=== PATIENT | female | born 1960 | race Two or more races ===

== ENCOUNTER 2016-12-31 22:34 | Emergency (ER) | payer OTHER ==
[2016-12-31 23:07] VITALS: BMI 32.5
[2016-12-31] MEDS ORDERED: ASPIRIN 81 MG CHEWABLE TABLETS PO ONE (23:13)
--- NOTE | 2016-12-31 23:16 | PDOC ---
History of Present Illness - General Chief Complaint: Pain Stated Complaint: ABD PAIN Time Seen by Provider: 12/31/16 23:08 History Source: Patient Exam Limitations: Language Barrier - History of Present Illness Initial Comments: 12/31/16 23:16 Patient is a 56F with PMH of HTN, HLD, and borderlne diabetes here today complaining of a syncopal event. She was straining to defecate, then started feeling lightheaded, sweaty, chest tightness and short of breath. The symptoms resolved after about one minute. She denies current shortness of breath but still endorses current chest tightness. She endorses orthopnea. She denies fevers or chills. Past History - Past Medical History Allergies/Adverse Reactions: Allergies Allergy/AdvReac Type Severity Reaction Status Date / Time No Known Drug Allergies Allergy Verified 12/31/16 23:07 PETS Allergy Intermediate Uncoded 12/31/16 23:07 SEASONAL Allergy Intermediate Uncoded 12/31/16 23:07 Home Medications: Ambulatory Orders Amlodipine Besylate [Norvasc -] 10 mg PO DAILY 06/11/12 Meclizine HCl [Antivert -] 25 mg PO TID 06/11/12 Albuterol Sulfate Inhaler - [Ventolin HFA Inhaler -] 1 inh PO PRN PRN 01/09/14 Aspirin [Aspirin EC] 1 tab PO DAILY 01/09/14 Ferrous Sulfate [Feosol] 1 tab PO DAILY 01/09/14 Fluticasone/Salmeterol [Advair Hfa 115-21 Mcg Inhaler] 1 inh PO AM 01/09/14 Pantoprazole Sodium [Protonix] 1 tab PO DAILY 01/09/14 Sennosides/Docusate Sodium [Dok Plus Tablet] 1 tab PO DAILY 01/09/14 Simvastatin [Zocor -] 1 tab PO DAILY 01/09/14 Guar Gum [Benefiber] 1 each PO BID #0 packet 01/10/14 Polyethylene Glycol 3350 [Miralax 255 gm Btl -] 17 gm PO DAILY #1 bottle Oxycodone HCl/Acetaminophen [Percocet 5-325 mg Tablet -] 1 - 2 tab PO Q4H PRN # 7 tablet MDD 4 01/23/16 Anemia: No Asthma: Yes Cancer: No Cardiac Disorders: No CVA: No COPD: No Dementia: No HTN: Yes Hypercholesterolemia: Yes Seizures: No Thyroid Disease: Yes (HYPO) - Surgical History Abdominal Surgery: Yes (ABDOMINAL HERNIA REPAIR) Cardiac Surgery: No Lung Surgery: No Neurologic Surgery: No - Psycho/Social/Smoking Cessation Hx Anxiety: No Suicidal Ideation: No Smoking Status: No Smoking History: Never smoked Have you smoked in the past 12 months: No Number of Cigarettes Smoked Daily: 0 Information on smoking cessation initiated: No Hx Alcohol Use: No Drug/Substance Use Hx: No Substance Use Type: None Review of Systems - Review of Systems Constitutional: No: Chills, Fever Respiratory: Yes: Shortness of Breath Cardiac (ROS): Yes: Lightheadedness, Chest Tightness. No: Chest Pain, Palpitations ABD/GI: Yes: Abd. Pain w/ defecation : No: Burning, Dysuria Musculoskeletal: Yes: Joint Pain (Left knee) Neurological: Yes: Headache *Physical Exam - Vital Signs Last Vital Signs Temp Pulse Resp BP Pulse Ox 98.8 F 79 18 116/84 98 12/31/16 23:05 12/31/16 23:05 12/31/16 23:05 12/31/16 23:05 12/31/16 23:05 - Physical Exam Comments: 12/31/16 23:41 Gen: No acute distress, well nourished CV: Regular rate and rhythm, no murmur/rubs/gallops Lungs: Clear to auscultation bilaterally Abd: Soft, nontender, normal bowel sounds Legs: Bilateral pitting edema to knees. Pain to palpation at and above the left knee. No erythema or redness Ext: 2+ pulses in all four extremities, warm ED Treatment Course - LABORATORY CBC & Chemistry Diagram: 12/31/16 23:48 12/31/16 23:48 Medical Decision Making - Medical Decision Making 12/31/16 23:46 Patient is a 56 woman with a history of left knee replacement complicated by chronic pain here today complaining of near syncope. Presentation is most consistent with vasovagal syncope. Will rule out DVT, ACS and other cardiac etiologies of synocpe. I ordered CBC, CMP, CXR, ECG, Trop, and BNP. Will signout to Dr Rajesh Chavira. 01/01/17 00:04 Condition unchanged. Workup pending. Signed out to Dr Rajesh Chavira. *DC/Admit/Observation/Transfer Diagnosis at time of Disposition: Syncope Qualifiers: Syncope type: vasovagal syncope Qualified Code(s): R55 - Syncope and collapse - Discharge Dispostion Condition at time of disposition: Fair - Attestations Physician Attestion: 01/01/17 00:07 I, Dr. Yahir Murphy, attest that this document has been prepared under my direction and personally reviewed by me in its entirety. I further attest, that it accurately reflects all work, treatment, procedures and medical decision -making performed by me.
[2016-12-31] MEDS ORDERED: ASPIRIN 81 MG CHEWABLE TABLETS ONE (23:25)
--- NOTE | 2016-12-31 23:47 | PDOC ---
Attending Attestation - Resident Resident Name: JeffreyYahir - ED Attending Attestation I have performed the following: I have examined & evaluated the patient, The case was reviewed & discussed with the resident, I agree w/resident's findings & plan, Exceptions are as noted - HPI HPI: 12/31/16 23:45 56-year-old female with left knee replacement about 9 months ago complicated by chronic knee pain maintained on opiates daily presents with near syncopal episode while straining to have a bowel movement. Developed lightheadedness with nausea and pallor, no injuries or loss of consciousness, brought in by EMS for evaluation. Symptoms have essentially resolved. - Physicial Exam PE: 12/31/16 23:46 Vital signs normal. Well-appearing. Cardiopulmonary exam is nonfocal, no audible murmurs Left knee incisional site is clean/dry/intact, there is trace pretibial pitting edema bilaterally. Neurovascularly intact distally - Medical Decision Making 12/31/16 23:46 Patient seen and evaluated with the resident. I agree with the overall evaluation, assessment, and management with the following summary of visit: 56-year-old female with presentation most consistent with vasovagal episode in the setting of constipation secondary to opiates and straining to have bowel movement. Low suspicion for primary cardiopulmonary process, vital signs are normal and not suggestive of ACS or PE. Check basic labs including troponin EKG, chest x-ray Left leg Doppler Monitor and dispo accordingly. If above is within normal limits, can be discharged outpatient follow-up with bowel regimen. 01/01/17 00:53 labs wnl, wbc 8, K 3.3, Cr nl, trop/bnp negative. UA with elevated WBC. Will send urine cx and treat empirically for UTI. Doppler performed but pending. Looks and feels at baseline, dispo pending. 01/01/17 01:48 labs wnl. mild hypoK repleted. doppler negative for dvt. UA with evidence of UTI. Ucx sent and treated empirically with macrobid. well appearing and at baseline in ED, seen ambulating with assistance as is her baseline. Family at bedside, agree with d/c plan on abx. Understand return criteria. Discharge Disposition - Diagnosis Syncope Qualifiers: Syncope type: vasovagal syncope Qualified Code(s): R55 - Syncope and collapse UTI (urinary tract infection) Qualifiers: Urinary tract infection type: acute cystitis Hematuria presence: without hematuria Qualified Code(s): N30.00 - Acute cystitis without hematuria - Discharge Dispostion Disposition: HOME Condition at time of disposition: Fair - Prescriptions Prescriptions: Nitrofurantoin Monohyd/M-Cryst [Macrobid -] 100 mg PO BID #14 capsule - Referrals Referrals: Cary Hanks MD [Primary Care Provider] - - Patient Instructions Printed Discharge Instructions: DI for Syncope in Adults (Fainting), DI for Urinary Tract Infection (UTI) Additional Instructions: Thank you for trusting us with your healthcare. You were diagnosed with vasovagal syncope, most likely caused by straining to use the restroom. You also have symptoms of a urinary tract infection. Based on our tests we were able to rule out serious causes for your syncope, however, if your symptoms worsen or you start to have fever or become confused, please return to the ED immediately. You should also follow up with your primary care physician to discuss our diagnosis and how this may effect his general management of your health. Print Language: [place] - Post Discharge Activity Heart Score/ECG Review #1 ECG reviewed & interpreted by me at: 01:30 General ECG Interpretation: Sinus Rhythm, Normal Rate (88), Normal Intervals ( qtc 486), No acute ischemic changes
[2016-12-31 23:54] LABS: BASOPHIL 0.7 % (0-2.0); EOSINOPHIL 2.5 % (0-4.5); MCH 24.6 pg (25.7-33.7); MCHC 32.8 g/dl (32.0-36.0); MEAN CELL VOLUME 75.1 fl (80-96); MEAN PLT VOLUME 8.6 fl (7.5-11.1); NEUTROPHILS 63.2 % (42.8-82.8); PLATELET COUNT 284 K/MM3 (134-434); RDW 15.2 % (11.6-15.6)
--- NOTE | 2017-01-01 00:15 | PDOC ---
*Physical Exam - Vital Signs Last Vital Signs Temp Pulse Resp BP Pulse Ox 98.8 F 79 18 116/84 98 12/31/16 23:05 12/31/16 23:05 12/31/16 23:05 12/31/16 23:05 12/31/16 23:05 Heart Score/ECG Review - History History: Slightly suspicious - Age Age: 45-65 - Risk Factors Risk Factors Heart Score: Yes Hx Hypertension, Yes Hx Diabetes - Troponin Troponin: </= normal limit ED Treatment Course - LABORATORY CBC & Chemistry Diagram: 12/31/16 23:48 12/31/16 23:48 - ADDITIONAL ORDERS Additional order review: 12/31/16 23:48 RBC 4.49 MCV 75.1 L MCHC 32.8 RDW 15.2 MPV 8.6 Neutrophils % 63.2 Lymphocytes % 27.4 Monocytes % 6.2 Eosinophils % 2.5 Basophils % 0.7 - Medications Given in the ED: ED Medications Discontinued Medications Generic Name Dose Route Start Last Admin Trade Name Freq PRN Reason Stop Dose Admin Aspirin 162 mg 12/31/16 23:13 12/31/16 23:27 Asa - PO 12/31/16 23:14 162 mg ONCE ONE Administration Medical Decision Making - Medical Decision Making 01/01/17 00:41 56 yo F with syncopy with BM. Complete cardiac w/o incl radiology and labs CBC wnl, mild hypokalemia (3.3), Nic(-)@<0,02 BNP(-)@37.1 01/01/17 02:15 CXR wnl doppler wnl *DC/Admit/Observation/Transfer Diagnosis at time of Disposition: Syncope Qualifiers: Syncope type: vasovagal syncope Qualified Code(s): R55 - Syncope and collapse UTI (urinary tract infection) Qualifiers: Urinary tract infection type: acute cystitis Hematuria presence: without hematuria Qualified Code(s): N30.00 - Acute cystitis without hematuria - Discharge Dispostion Disposition: HOME Condition at time of disposition: Fair - Referrals Referrals: Cary Hanks MD [Primary Care Provider] - - Patient Instructions Printed Discharge Instructions: DI for Urinary Tract Infection (UTI), DI for Syncope in Adults (Fainting) Additional Instructions: Thank you for trusting us with your healthcare. You were diagnosed with vasovagal syncope, most likely caused by straining to use the restroom. You also have symptoms of a urinary tract infection. Based on our tests we were able to rule out serious causes for your syncope, however, if your symptoms worsen or you start to have fever or become confused, please return to the ED immediately. You should also follow up with your primary care physician to discuss our diagnosis and how this may effect his general management of your health. - Post Discharge Activity - Attestations Physician Attestion: 01/01/17 02:30 I, Dr. Rajesh Chavira, attest that this document has been prepared under my direction and personally reviewed by me in its entirety. I further attest, that it accurately reflects all work, treatment, procedures and medical decision -making performed by me.
[2017-01-01 00:22] LABS: ALBUMIN 3.7 g/dl (3.4-5.0); ANION GAP 10 (8-16); BILIRUBIN,TOTAL 0.4 mg/dL (0.2-1.0); CALCIUM 8.8 mg/dL (8.5-10.1); CO2 28 mmol/L (21-32); CREATININE 0.7 mg/dL (0.55-1.02); GLUCOSE,RANDOM 136 mg/dL (74-106); SGOT/AST 32 U/L (15-37); SGPT/ALT 48 U/L (12-78); TOT PROT 7.1 g/dl (6.4-8.2)
[2017-01-01 00:25] LABS: ALK PHOS 87 U/L (45-117); TROPONIN I < 0.02 ng/ml (0.00-0.05)
[2017-01-01 00:36] LABS: URINE APPEARANCE CLEAR; URINE BILIRUBIN NEGATIVE (NEGATIVE); URINE COLOR STRAW; URINE GLUCOSE (UA) NEGATIVE (NEGATIVE); URINE KETONE NEGATIVE (NEGATIVE); URINE NITRITE NEGATIVE (NEGATIVE); URINE PROTEIN NEGATIVE (NEGATIVE); URINE UROBILINOGEN NEGATIVE E.U./dl (0.2-1.0)
[2017-01-01 00:40] LABS: URINE BLOOD 1+ (NEGATIVE); URINE LEUK ESTERASE TRACE (NEGATIVE)
[2017-01-01 00:42] LABS: URINE BACTERIA MODERATE /hpf (NONE SEEN); URINE RBC 2 /hpf (0-3); URINE WBC 25 /hpf (3-5)
[2017-01-01] MEDS ORDERED: POTASSIUM CHLORIDE TABS 20 MEQ TABLET.ER (FP) PO ONE ×2 (00:52→01:11)
[2017-01-01] MEDS ORDERED: NITROFURANTOIN MACROCRYSTAL 50 MG CAPSULE (FP) PO SCH (01:00)
[2017-01-01] MEDS ORDERED: NITROFURANTOIN MACROCRYSTAL 50 MG CAPSULE (FP) ONE (01:10)
[2017-01-01 02:52] VITALS: BP 134/72; PULSE 85; TEMP 98.4
--- NOTE | 2017-01-03 13:54 | EKG ---
Test Reason : Blood Pressure : / mmHG Vent. Rate : 088 BPM Atrial Rate : 088 BPM P-R Int : 162 ms QRS Dur : 096 ms QT Int : 402 ms P-R-T Axes : 059 003 006 degrees QTc Int : 486 ms NORMAL SINUS RHYTHM PROLONGED QT ABNORMAL ECG WHEN COMPARED WITH ECG OF 28-APR-2016 18:56, NO SIGNIFICANT CHANGE WAS FOUND Confirmed by JONATHAN JOHNSON MD ([id number]) on 01/03/2017 1:54:13 PM Referred By: Confirmed By:JONATHAN JOHNSON MD
== END 2017-01-01 03:03 | disposition home or self-care (01) ==
LOC: SUPCPDRO 22:34 → JER 22:34
DX: R55 Syncope and collapse (principal); I10 Essential (primary) hypertension; E78.5 Hyperlipidemia, unspecified; J45.909 Unspecified asthma, uncomplicated; E03.9 Hypothyroidism, unspecified
CPT/HCPCS: 36415; 71020-TC; 80053; 81003; 81015; 82550; 83880; 84484; 87086; 93005; 93010; 93971-TC; 99282-25

== ENCOUNTER 2017-07-16 23:14 | Emergency (ER) | payer OTHER ==
[2017-07-16 23:26] VITALS: TEMP 98; BMI 24.3
--- NOTE | 2017-07-16 23:38 | PDOC ---
History of Present Illness - General Chief Complaint: Chest Pain Stated Complaint: CHEST PAIN Time Seen by Provider: 07/16/17 23:22 - History of Present Illness Initial Comments: 07/16/17 23:46 56F with pmf of multiple knee replacements, asthma, htn and cholesterol presents with left sided chest pain and back pain sice getting into an argument with her tonight an hour ago. Patient also complains of headache. 07/16/17 23:55 Past History - Past Medical History Allergies/Adverse Reactions: Allergies Allergy/AdvReac Type Severity Reaction Status Date / Time No Known Drug Allergies Allergy Verified 07/16/17 23:24 PETS Allergy Intermediate Uncoded 07/16/17 23:24 SEASONAL Allergy Intermediate Uncoded 07/16/17 23:24 Home Medications: Ambulatory Orders Cetirizine HCl 10 mg PO DAILY 01/01/17 Cyclobenzaprine HCl [Flexeril 10 mg] 10 mg PO BID PRN 01/01/17 Fexofenadine HCl 180 mg PO DAILY 01/01/17 Oxycodone HCl/Acetaminophen [Endocet 7.5-325 mg Tablet] 1 each PO Q6H PRN Simvastatin 20 mg PO HS 01/01/17 Ferrous Sulfate 325 mg PO DAILY 07/17/17 Fluticasone Prop 0.05% Nasal [Flonase -] 1 spray NS DAILY 07/17/17 Losartan 50Mg/Hctz 12.5MG [Hyzaar -] 1 tab PO DAILY 07/17/17 Meclizine HCl 25 mg PO DAILY 07/17/17 Pantoprazole Sodium 40 mg PO DAILY 07/17/17 Anemia: No Asthma: Yes Cancer: No Cardiac Disorders: No CVA: No COPD: No Dementia: No Diabetes: Yes HTN: Yes Hypercholesterolemia: Yes Seizures: No Thyroid Disease: Yes (HYPO) - Surgical History Abdominal Surgery: Yes (ABDOMINAL HERNIA REPAIR) Cardiac Surgery: No Lung Surgery: No Neurologic Surgery: No - Suicide/Smoking/Psychosocial Hx Smoking Status: No Smoking History: Never smoked Have you smoked in the past 12 months: No Number of Cigarettes Smoked Daily: 0 Information on smoking cessation initiated: No Hx Alcohol Use: No Drug/Substance Use Hx: No Substance Use Type: None Cardiac Specific PMH - Complaint Specific PMHX Pacemaker: No Review of Systems - Review of Systems Able to Perform ROS?: Yes Is the patient limited Panamanian proficient: No Constitutional: No: Symptoms Reported HEENTM: No: Symptoms Reported Respiratory: No: Symptoms reported Cardiac (ROS): Yes: See HPI ABD/GI: No: Symptoms Reported : No: Symptoms Reported Musculoskeletal: No: Symptoms Reported Integumentary: No: Symptoms Reported Neurological: Yes: Headache All Other Systems: Reviewed and Negative *Physical Exam - Vital Signs Last Vital Signs Temp Pulse Resp BP Pulse Ox 98.0 F 75 18 150/77 96 07/16/17 23:24 07/17/17 02:19 07/17/17 02:19 07/17/17 02:19 07/17/17 00:10 - Physical Exam General Appearance: Yes: Nourished, Appropriately Dressed. No: Apparent Distress HEENT: positive: EOMI, MIKE, Normal ENT Inspection Neck: negative: Tender Respiratory/Chest: positive: Chest Tender, Lungs Clear, Normal Breath Sounds Cardiovascular: positive: Regular Rhythm, Regular Rate, S1, S2 Gastrointestinal/Abdominal: positive: Normal Bowel Sounds, Flat, Soft. negative : Tender Neurologic: positive: Fully Oriented, Alert, Normal Mood/Affect ED Treatment Course - LABORATORY CBC & Chemistry Diagram: 07/17/17 00:18 07/17/17 00:18 - ADDITIONAL ORDERS Additional order review: Laboratory Results 07/17/17 07/17/17 04:28 00:18 Sodium 135 L Potassium 3.3 L Chloride 100 Carbon Dioxide 25 Anion Gap 10 BUN 11 Creatinine 0.7 Creat Clearance w eGFR > 60 Random Glucose 83 Calcium 8.5 Total Bilirubin 0.4 AST 21 ALT 31 Alkaline Phosphatase 86 Creatine Kinase 113 124 Troponin I < 0.02 < 0.02 Total Protein 7.7 Albumin 3.8 07/17/17 00:18 RBC 4.39 MCV 77.2 L MCHC 32.9 RDW 15.7 H MPV 9.0 Neutrophils % 36.7 L D Lymphocytes % 52.3 H D Monocytes % 6.7 Eosinophils % 3.5 Basophils % 0.8 - RADIOLOGY Radiology Studies Ordered: Category Date Time Status CHEST PA & LAT [RAD] Stat Radiology 07/17/17 01:50 Taken - Medications Given in the ED: ED Medications Discontinued Medications Generic Name Dose Route Start Last Admin Trade Name Freq PRN Reason Stop Dose Admin Acetaminophen 1,000 mg 07/17/17 02:30 07/17/17 02:40 Ofirmev Injection - IVPB 07/17/17 02:31 1,000 mg ONCE ONE Administration Potassium Chloride 40 meq 07/17/17 01:41 07/17/17 02:10 K-Dur - PO 07/17/17 01:42 40 meq ONCE ONE Administration Medical Decision Making - Medical Decision Making 07/17/17 01:53 Basic labs WNL negative Trops. EKG: Normal sinus rhythm. Left ventricular hypertrophy. non-specific st abnormality *DC/Admit/Observation/Transfer Diagnosis at time of Disposition: Chest pain, atypical - Discharge Dispostion Disposition: HOME Admit: No - Referrals Referrals: Grisel Rivera MD [Primary Care Provider] - - Patient Instructions Printed Discharge Instructions: DI for Atypical Chest Pain Additional Instructions: Follow up with your primary care physician within 3-4 days. Come back to the ED for any new, worsening or concerning symptoms. - Post Discharge Activity
--- NOTE | 2017-07-17 00:20 | PDOC ---
Attending Attestation - Resident Resident Name: Gabe Moran - ED Attending Attestation I have performed the following: I have examined & evaluated the patient, The case was reviewed & discussed with the resident, I agree w/resident's findings & plan - HPI HPI: 07/17/17 00:19 Pt comes with a crampy pain in her chest. Pain started 1 hr ago after getting into an argument with her . - Physicial Exam PE: 07/17/17 05:34 AGREE WITH RESIDENT EXAM - Medical Decision Making 07/17/17 05:35 HOME WITH PMD FOLLOW UP. 07/17/17 05:35 LABS NORMAL. 2ND CARDIAC ENZYME NORMAL
[2017-07-17 00:32] LABS: BASO % 0.8 % (0-2.0); HEMOGLOBIN 11.1 GM/dL (10.7-15.3); MONO % 6.7 % (3.8-10.2); WHITE BLOOD COUNT 6.4 K/mm3 (4.0-10.0)
[2017-07-17 00:35] LABS: EOS % 3.5 % (0-4.5); HEMATOCRIT 33.8 % (32.4-45.2); LYMPH % 52.3 % (8-40); MCH 25.4 pg (25.7-33.7); MCHC 32.9 g/dl (32.0-36.0); MEAN CELL VOLUME 77.2 fl (80-96); NEUT % 36.7 % (42.8-82.8); PLATELET COUNT 348 K/MM3 (134-434); RBC 4.39 M/mm3 (3.60-5.2); RDW 15.7 % (11.6-15.6)
[2017-07-17 00:59] LABS: ALBUMIN 3.8 g/dl (3.4-5.0); ANION GAP 10 (8-16); BILIRUBIN,TOTAL 0.4 mg/dL (0.2-1.0); BLOOD UREA NITROGEN 11 mg/dL (7-18); CALCIUM 8.5 mg/dL (8.5-10.1); CHLORIDE 100 mmol/L (98-107); CO2 25 mmol/L (21-32); CREATININE 0.7 mg/dL (0.55-1.02); GLUCOSE,RANDOM 83 mg/dL (74-106); POTASSIUM 3.3 mmol/L (3.5-5.1); SGOT/AST 21 U/L (15-37); SGPT/ALT 31 U/L (12-78); SODIUM 135 mmol/L (136-145); TOT PROT 7.7 g/dl (6.4-8.2)
[2017-07-17 01:02] LABS: ALK PHOS 86 U/L (45-117)
[2017-07-17] MEDS ORDERED: POTASSIUM CHLORIDE TABS 20 MEQ TABLET.ER (FP) PO ONE ×2 (01:41→02:10)
[2017-07-17 02:20] VITALS: BP 150/77; PULSE 75
[2017-07-17] MEDS ORDERED: ACETAMINOPHEN INJECTION 100 ML IVPB ONE (02:30)
[2017-07-17] MEDS ORDERED: ACETAMINOPHEN 1000 MG/100 ML VIAL (NON FORMULARY) IVPB ONE (02:30)
--- NOTE | 2017-07-17 16:05 | EKG ---
Test Reason : Blood Pressure : / mmHG Vent. Rate : 076 BPM Atrial Rate : 076 BPM P-R Int : 158 ms QRS Dur : 090 ms QT Int : 408 ms P-R-T Axes : 049 -03 -09 degrees QTc Int : 459 ms NORMAL SINUS RHYTHM VOLTAGE CRITERIA FOR LEFT VENTRICULAR HYPERTROPHY NONSPECIFIC ST ABNORMALITY ABNORMAL ECG WHEN COMPARED WITH ECG OF 01-JAN-2017 01:30, NO SIGNIFICANT CHANGE WAS FOUND Confirmed by Modesto Dolan ([id number]) on 07/17/2017 4:05:26 PM Referred By: Confirmed By:[place] Dolan
== END 2017-07-17 05:47 | disposition home or self-care (01) ==
LOC: JER 23:14
PROC: 3E033NZ Introduction of Analgesics, Hypnotics, Sedatives into Peripheral Vein, Percutaneous Approach (ICD-10-PCS; principal; 2017-07-16)
DX: R07.89 Other chest pain (principal); I10 Essential (primary) hypertension; E78.00 Pure hypercholesterolemia, unspecified; E11.9 Type 2 diabetes mellitus without complications; E03.9 Hypothyroidism, unspecified; J45.909 Unspecified asthma, uncomplicated
CPT/HCPCS: 36415; 71046-TC; 80053; 82550; 84484; 85025; 93005; 93010; 96374; 99283-25

== ENCOUNTER 2017-11-02 15:05 | Observation (INO) | payer OTHER ==
--- NOTE | 2017-11-02 16:01 | PDOC ---
History of Present Illness - General History Source: Patient Exam Limitations: No Limitations - History of Present Illness Initial Comments: 11/02/17 16:42 The patient is a 57 year old female with past medical history of chronic arthritis, hypertension, and diabetes s/p left knee replacement 3 months ago presents to the ED with multiple complaints. She reports left sided chest pain that began 2 months ago that radiates to her left shoulder and down her left arm. She reports putting her arm in a sling today without receiving any relief. It is not associated with any palpitations, lightheadedness, shortness of breath , numbness or tingling down the extremity, or any lower extremity swelling. She also reports that she developed a fever over the past day but denies any chills or cough. She reports associated headaches which she qualifies is the same as her chronic headaches. She denies any nausea, vomiting, diarrhea, or urinary complaints. The patient adds that she recently traveled to [facility] 2 months ago. <Julee Hinkle - Last Filed: 11/02/17 19:56> <Bambi Conde - Last Filed: 11/02/17 23:34> - General Chief Complaint: Chest Pain Stated Complaint: CHEST PAIN/ARM PAIN, ARTHRITIS Time Seen by Provider: 11/02/17 15:52 Past History <Julee Hinkle - Last Filed: 11/02/17 19:56> - Past Medical History Anemia: No Asthma: Yes Cancer: No Cardiac Disorders: No CVA: No COPD: No Dementia: No Diabetes: Yes HTN: Yes Hypercholesterolemia: Yes Seizures: No Thyroid Disease: Yes (HYPO) - Surgical History Abdominal Surgery: Yes (ABDOMINAL HERNIA REPAIR) Cardiac Surgery: No Lung Surgery: No Neurologic Surgery: No - Immunization History Immunization Up to Date: Yes - Suicide/Smoking/Psychosocial Hx Smoking Status: No Smoking History: Never smoked Have you smoked in the past 12 months: No Number of Cigarettes Smoked Daily: 0 Information on smoking cessation initiated: No Hx Alcohol Use: No Drug/Substance Use Hx: No Substance Use Type: None <Bambi Conde - Last Filed: 11/02/17 23:34> - Past Medical History Allergies/Adverse Reactions: Allergies Allergy/AdvReac Type Severity Reaction Status Date / Time No Known Drug Allergies Allergy Verified 11/02/17 15:32 PETS Allergy Intermediate Uncoded 11/02/17 15:32 SEASONAL Allergy Intermediate Uncoded 11/02/17 15:32 Home Medications: Ambulatory Orders Cetirizine HCl 10 mg PO DAILY 01/01/17 Cyclobenzaprine HCl [Flexeril 10 mg] 10 mg PO BID PRN 01/01/17 Fexofenadine HCl 180 mg PO DAILY 01/01/17 Oxycodone HCl/Acetaminophen [Endocet 7.5-325 mg Tablet] 1 each PO Q6H PRN Simvastatin 20 mg PO HS 01/01/17 Fluticasone Prop 0.05% Nasal [Flonase -] 1 spray NS DAILY 07/17/17 Losartan 50Mg/Hctz 12.5MG [Hyzaar -] 1 tab PO DAILY 07/17/17 Meclizine HCl 25 mg PO DAILY 07/17/17 Pantoprazole Sodium 40 mg PO DAILY 07/17/17 Ibuprofen 600 mg PO QID PRN #20 tablet 10/14/17 Review of Systems - Review of Systems Able to Perform ROS?: Yes Comments:: 11/02/17 16:43 GENERAL/CONSTITUTIONAL: (+) Fever. No chills. No weakness. HEAD, EYES, EARS, NOSE AND THROAT: No change in vision. No ear pain or discharge. No sore throat. CARDIOVASCULAR: (+) L sided chest pain. No shortness of breath. RESPIRATORY: No cough, wheezing, or hemoptysis. GASTROINTESTINAL: No nausea, vomiting, diarrhea or constipation. GENITOURINARY: No dysuria, frequency, or change in urination. MUSCULOSKELETAL: (+) L shoulder pain. No neck or back pain. SKIN: No rash NEUROLOGIC: (+)Headache. No vertigo, loss of consciousness, or change in strength/sensation. ENDOCRINE: No increased thirst. No abnormal weight change. HEMATOLOGIC/LYMPHATIC: No anemia, easy bleeding, or history of blood clots. ALLERGIC/IMMUNOLOGIC: No hives or skin allergy. All Other Systems: Reviewed and Negative <Julee Hinkle - Last Filed: 11/02/17 19:56> *Physical Exam - Vital Signs Last Vital Signs Temp Pulse Resp BP Pulse Ox 101 F H 76 19 123/95 98 11/02/17 15:30 11/02/17 15:30 11/02/17 15:30 11/02/17 15:30 11/02/17 15:30 - Physical Exam Comments: 11/02/17 16:58 GENERAL: (+) hot to touch. Awake, alert, and fully oriented, in no acute distress HEAD: No signs of trauma EYES: PERRLA, EOMI, sclera anicteric, conjunctiva clear ENT: Auricles normal inspection, hearing grossly normal, nares patent, oropharynx clear without exudates. Moist mucosa NECK: Normal ROM, supple, no lymphadenopathy, JVD, or masses LUNGS: Breath sounds equal, clear to auscultation bilaterally. No wheezes, and no crackles HEART: Regular rate and rhythm, normal S1 and S2, no murmurs, rubs or gallops ABDOMEN: Soft, nontender, normoactive bowel sounds. No guarding, no rebound. No masses EXTREMITIES: Tenderness over left anterior shoulder and insertion of biceps tendon head. Normal range of motion, no edema. No clubbing or cyanosis. No cords, erythema NEUROLOGICAL: Cranial nerves II through XII grossly intact. Normal speech, normal gait SKIN: Warm, Dry, normal turgor, no rashes or lesions noted. <Julee Hinkle - Last Filed: 11/02/17 19:56> - Vital Signs Last Vital Signs Temp Pulse Resp BP Pulse Ox 101 F H 76 19 123/95 98 11/02/17 15:30 11/02/17 15:30 11/02/17 15:30 11/02/17 15:30 11/02/17 15:30 <Bambi Conde - Last Filed: 11/02/17 23:34> Heart Score/ECG Review - ECG Intrepretation Comment:: 11/02/17 23:15 sinus at 75, nl axis, LVH, t wave inversions inferior leads, no acute st segment changes <Bambi Conde - Last Filed: 11/02/17 23:34> ED Treatment Course - LABORATORY CBC & Chemistry Diagram: 11/02/17 16:17 11/02/17 16:17 - Medications Given in the ED: ED Medications Discontinued Medications Generic Name Dose Route Start Last Admin Trade Name Freq PRN Reason Stop Dose Admin Acetaminophen 1,000 mg 11/02/17 16:10 11/02/17 16:39 Ofirmev Injection - IVPB 11/02/17 16:11 1,000 mg ONCE ONE Administration Ketorolac Tromethamine 30 mg 11/02/17 16:10 11/02/17 16:39 Toradol Injection - IVPUSH 11/02/17 16:11 30 mg ONCE ONE Administration Sodium Chloride 1,000 ml 11/02/17 16:10 11/02/17 16:39 Normal Saline - IV 11/02/17 16:11 1,000 ml ONCE ONE Administration <elizabethJulee pryor - Last Filed: 11/02/17 19:56> - LABORATORY CBC & Chemistry Diagram: 11/02/17 16:17 11/02/17 16:17 <Bambi Conde - Last Filed: 11/02/17 23:34> Medical Decision Making - Medical Decision Making 11/02/17 19:32 doppler venous ultrasound as reviewed by Dr. Riley reports no evidence of DVT in bilateral lower extremities. Vascular scan of left upper extremity as reviewed by Dr. Riley reports no evidence of DVT in LUE Chest x-ray as reviewed by Dr. Riley reports no acute pathology. LUE x-ray as reviewed by Dr. Riley reports no gross bone deformity, fracture, or dislocation identified. <[email or web address] - Last Filed: 11/02/17 19:56> - Medical Decision Making 11/02/17 16:25 a/p: 57yo female with hx of DM, HTN, chronic arthritis, chronic back pain, knee replacement 3 months ago and hx of shoulder sx on R with fever today and L sided cp that radiates to L shoulder -denies cough, denies sob, no sore throat, no rhinorrhea -no meningeal signs -worsening L shoulder pain x 2 months - worse today - wearing a brace -concern for PNA vs PE vs DVT -will obtain labs, ultrasound, cxr, cultures, ekg -will treat fever and pain -will reassess 11/02/17 17:51 elevated dimer discussed case with ultrasound - UE and b/l LE negative for PE however L sided cp, will obtain cta pe study 11/02/17 23:00 pt with recurrent fever will redose antipyretics abx going for UTI will keep in obs 11/02/17 23:12 ortho consult placed for L shoulder pain will keep in obs for ACS r/o, IV abx, fever treatment 11/02/17 23:[address] Wilkerson who accepts pt to service <Bambi Conde - Last Filed: 11/02/17 23:34> *DC/Admit/Observation/Transfer - Attestations Scribe Attestion: 11/02/17 17: Documentation prepared by Julee Hinkle, acting as hospitalist medical director for Bambi Conde DO. <Julee Hinkle - Last Filed: 11/02/17 19:56> - Discharge Dispostion Decision to Admit order: Yes - Attestations Physician Attestion: 11/02/17 23:34 I, Dr. Bambi Conde DO, attest that this document has been prepared under my direction and personally reviewed by me in its entirety. I further attest, that it accurately reflects all work, treatment, procedures and medical decision -making performed by me. <Bambi Conde - Last Filed: 11/02/17 23:34> Diagnosis at time of Disposition: Fever, UTI (urinary tract infection), Chronic left shoulder pain, Chest pain - Discharge Dispostion Condition at time of disposition: Fair - Referrals Referrals: Grisel Rivera MD [Primary Care Provider] -
[2017-11-02] MEDS ORDERED: ACETAMINOPHEN 1000 MG/100 ML VIAL (NON FORMULARY) IVPB ONE (16:10)
[2017-11-02] MEDS ORDERED: SODIUM CHLORIDE 0.9% 1000 ML INFUS.BAG IV ONE (16:10)
[2017-11-02] MEDS ORDERED: KETOROLAC TROMETHAMINE 30 MG/1 ML VIAL IVPUSH ONE (16:10)
[2017-11-02] MEDS ORDERED: KETOROLAC TROMETHAMINE 30 MG/1 ML VIAL ONE (16:32)
[2017-11-02] MEDS ORDERED: ACETAMINOPHEN INJECTION 100 ML IVPB ONE (16:32)
[2017-11-02 16:42] LABS: BASO % 0.3 % (0-2.0); EOS % 1.8 % (0-4.5); HEMOGLOBIN 10.1 GM/dL (10.7-15.3); LYMPH % 16.2 % (8-40); MCHC 33.8 g/dl (32.0-36.0); MEAN CELL VOLUME 76.9 fl (80-96); MEAN PLT VOLUME 7.9 fl (7.5-11.1); MONO % 6.9 % (3.8-10.2); NEUT % 74.8 % (42.8-82.8); PLATELET COUNT 318 K/MM3 (134-434); RDW 14.1 % (11.6-15.6); WHITE BLOOD COUNT 9.9 K/mm3 (4.0-10.0)
[2017-11-02 17:05] LABS: INR 0.98 (0.82-1.09); PROTHROMBIN TIME (PATIENT) 11.1 SEC (9.7-13.0)
[2017-11-02 17:22] LABS: ALBUMIN 3.5 g/dl (3.4-5.0); ANION GAP 9 (8-16); BLOOD UREA NITROGEN 9 mg/dL (7-18); CALCIUM 8.2 mg/dL (8.5-10.1); CHLORIDE 100 mmol/L (98-107); CO2 26 mmol/L (21-32); GLUCOSE,RANDOM 100 mg/dL (74-106); POTASSIUM 3.9 mmol/L (3.5-5.1); SODIUM 135 mmol/L (136-145)
[2017-11-02 17:30] LABS: ALK PHOS 84 U/L (45-117); BILIRUBIN,TOTAL 0.3 mg/dL (0.2-1.0); CREATININE 0.8 mg/dL (0.55-1.02); SGOT/AST 20 U/L (15-37); SGPT/ALT 24 U/L (12-78); TOT PROT 6.8 g/dl (6.4-8.2)
[2017-11-02 17:40] LABS: VENOUS PC02 41.6 mmHg (38-52); VENOUS PH 7.35 (7.32-7.42)
[2017-11-02 17:41] LABS: VENOUS PO2 58.8 mmHg (28-48)
[2017-11-02 21:19] LABS: URINE APPEARANCE CLEAR; URINE BILIRUBIN NEGATIVE (<2.0 mg/dL); URINE COLOR STRAW; URINE GLUCOSE (UA) NEGATIVE (NEGATIVE); URINE KETONE NEGATIVE (NEGATIVE); URINE NITRITE NEGATIVE (NEGATIVE); URINE PROTEIN NEGATIVE (NEGATIVE); URINE UROBILINOGEN NEGATIVE mg/dL (0.2-1.0)
[2017-11-02 21:20] LABS: URINE LEUK ESTERASE 3+ (NEGATIVE)
[2017-11-02 21:22] LABS: URINE MUCUS RARE
[2017-11-02] MEDS ORDERED: morphine CARPU-JECT 4 MG/1 ML DISP.SYRIN IVPUSH ONE (21:42)
[2017-11-02] MEDS ORDERED: CEFTRIAXONE 1 GM in DEXTROSE 5%-WATER - 100 ML IVPB ONE (21:42)
[2017-11-02] MEDS ORDERED: morphine SULFATE 4 MG/ML VIAL ONE (21:43)
[2017-11-02] MEDS ORDERED: CEFTRIAXONE 1 GM/50 ML BAG ONE (21:44)
[2017-11-02] MEDS ORDERED: ASPIRIN 81 MG CHEWABLE TABLETS PO ONE (22:59)
[2017-11-02] MEDS ORDERED: ACETAMINOPHEN 325 MG TABLET (FP) PO ONE (23:12)
[2017-11-02] MEDS ORDERED: ACETAMINOPHEN 325 MG TABLET (FP) ONE (23:20)
[2017-11-02] MEDS ORDERED: ASPIRIN 325 MG TABLET ONE (23:21)
[2017-11-02] MEDS ORDERED: oxyCODONE HCL 5 MG TABLET PO ONE (23:27)
[2017-11-02] MEDS ORDERED: oxyCODONE HCL 5 MG TABLET ONE (23:32)
[2017-11-03] MEDS ORDERED: CYCLOBENZAPRINE HCL 10 MG TABLET (FP) PO PRN (01:24)
[2017-11-03] MEDS ORDERED: PATIENT'S OWN MEDICATION (NON-FORMULARY) (Oxycodone Hcl/Acetaminophen [Oxycodone-Acetamino PO PRN (01:24)
[2017-11-03] MEDS ORDERED: MECLIZINE HCL 25 MG TABLET (FP) PO PRN (01:24)
--- NOTE | 2017-11-03 01:59 | HP ---
CHIEF COMPLAINT: LEFT SHOULDER, CHEST AND BACK PAIN PCP: Rikki HISTORY OF PRESENT ILLNESS: This is a 57 year old female with a significant past medical history of chronic arthritis, HTN, HLD, borderline DM who presented to the ED with a 2 month history of left shoulder pain radiating to her back and chest. She reports the pain was more severe today prompting her to come to the ED. She also reports fever x 1 day. ER course was notable for: (1) Troponin negative x 2 (2) U/a with 3+ leuk esterase (3) temp 101 Recent Travel: [place] 2 months ago PAST MEDICAL HISTORY: chronic arthritis, HTN, HLD, asthma, borderline DM PAST SURGICAL HISTORY: right shoulder arthroscopic surgery x 2 L knee surgery x 3, TKR 3 months ago abdominal hernia repair with mesh Social History: Smoking: pt denies Alcohol: pt denies Drugs: pt denies Allergies No Known Drug Allergies Allergy (Verified 11/02/17 15:32) PETS Allergy (Intermediate, Uncoded 11/02/17 15:32) SEASONAL Allergy (Intermediate, Uncoded 11/02/17 15:32) HOME MEDICATIONS: 3 Medication Instructions Recorded Cetirizine HCl 10 mg PO DAILY 01/01/17 Cyclobenzaprine HCl [Flexeril 10 10 mg PO BID PRN 01/01/17 mg] Fexofenadine HCl 180 mg PO DAILY 01/01/17 Simvastatin 20 mg PO HS 01/01/17 Fluticasone Prop 0.05% Nasal 1 spray NS DAILY 07/17/17 [Flonase -] Meclizine HCl 25 mg PO DAILY 07/17/17 Pantoprazole Sodium 40 mg PO DAILY 07/17/17 Losartan Potassium [Cozaar] 100 mg PO DAILY 11/03/17 Oxycodone HCl/Acetaminophen 1 each PO Q6H PRN 11/03/17 [Oxycodone-Acetaminophen 10-325] REVIEW OF SYSTEMS CONSTITUTIONAL: Absent: fever, chills, diaphoresis, generalized weakness, malaise, loss of appetite, weight change HEENT: Absent: rhinorrhea, nasal congestion, throat pain, throat swelling, difficulty swallowing, mouth swelling, ear pain, eye pain, visual changes CARDIOVASCULAR: Present: chest pain Absent: syncope, palpitations, irregular heart rate, lightheadedness, peripheral edema RESPIRATORY: Absent: cough, shortness of breath, dyspnea with exertion, orthopnea, wheezing, stridor, hemoptysis GASTROINTESTINAL: Absent: abdominal pain, abdominal distension, nausea, vomiting, diarrhea, constipation, melena, hematochezia GENITOURINARY: Absent: dysuria, frequency, urgency, hesitancy, hematuria, flank pain, genital pain MUSCULOSKELETAL: Present: left shoulder and left upper back pain Absent: myalgia, arthralgia, joint swelling SKIN: Absent: rash, itching, pallor HEMATOLOGIC/IMMUNOLOGIC: Absent: easy bleeding, easy bruising, lymphadenopathy, frequent infections ENDOCRINE: Absent: unexplained weight gain, unexplained weight loss, heat intolerance, cold intolerance NEUROLOGIC: Absent: headache, focal weakness or paresthesias, dizziness, unsteady gait, seizure, mental status changes, bladder or bowel incontinence PSYCHIATRIC: Absent: anxiety, depression, suicidal or homicidal ideation, hallucinations. PHYSICAL EXAMINATION Vital Signs - 24 hr 3 11/02/17 11/02/17 11/02/17 15:30 17:53 22:30 Temperature 101 F H 98.4 F Pulse Rate 76 Pulse Rate [ 81 Right] Respiratory 19 20 Rate Blood Pressure 123/95 Blood Pressure 143/74 [Left Arm] O2 Sat by Pulse 98 97 100 Oximetry (%) 3 11/03/17 00:07 Temperature Pulse Rate Pulse Rate [ 80 Right] Respiratory 18 Rate Blood Pressure Blood Pressure 138/70 [Left Arm] O2 Sat by Pulse 100 Oximetry (%) GENERAL: Awake, alert, and fully oriented, in no acute distress. HEAD: Normal with no signs of trauma. EYES: Pupils equal, round and reactive to light, extraocular movements intact, sclera anicteric, conjunctiva clear. No lid lag. EARS, NOSE, THROAT: Ears normal, nares patent, oropharynx clear without exudates. Moist mucous membranes. NECK: Normal range of motion, supple without lymphadenopathy, JVD, or masses. LUNGS: Breath sounds equal, clear to auscultation bilaterally. No wheezes, and no crackles. No accessory muscle use. HEART: Regular rate and rhythm, normal S1 and S2 without murmur, rub or gallop. ABDOMEN: Soft, nontender, not distended, normoactive bowel sounds, no guarding, no rebound, no masses. No hepatomegaly or splenomegaly. MUSCULOSKELETAL: Normal range of motion at all joints except L shoulder. No bony deformities or tenderness. No CVA tenderness. decreased ROM left shoulder secondary to pain UPPER EXTREMITIES: 2+ pulses, warm, well-perfused. No cyanosis. No clubbing. No peripheral edema. LOWER EXTREMITIES: 2+ pulses, warm, well-perfused. No calf tenderness. No peripheral edema. NEUROLOGICAL: Cranial nerves II-XII intact. Normal speech. Normal gait. PSYCHIATRIC: Cooperative. Good eye contact. Appropriate mood and affect. SKIN: Warm, dry, normal turgor, no rashes or lesions noted, normal capillary refill. Laboratory Results - last 24 hr 3 11/02/17 11/02/17 11/02/17 11/02/17 11/02/17 16:17 16:17 16:17 16:32 23:40 WBC 9.9 D RBC 3.90 Hgb 10.1 L Hct 30.0 L MCV 76.9 L MCH 26.0 MCHC 33.8 RDW 14.1 D Plt Count 318 MPV 7.9 D Neutrophils % 74.8 D Lymphocytes % 16.2 D Monocytes % 6.9 Eosinophils % 1.8 Basophils % 0.3 PT with INR INR PTT (Actin FS) 29.0 D-Dimer 971 H VBG pH POC VBG pCO2 POC VBG pO2 Mixed VBG HCO3 Sodium 135 L Potassium 3.9 Chloride 100 Carbon Dioxide 26 Anion Gap 9 BUN 9 Creatinine 0.8 Creat Clearance w eGFR > 60 Random Glucose 100 Lactic Acid 2.1 H Uric Acid 5.4 Calcium 8.2 L Magnesium 2.3 Total Bilirubin 0.3 D AST 20 ALT 24 Alkaline Phosphatase 84 Creatine Kinase 75 69 Troponin I < 0.02 < 0.02 Total Protein 6.8 Albumin 3.5 Urine Color Urine Appearance Urine pH Ur Specific [place] Urine Protein Urine Glucose (UA) Urine Ketones Urine Blood Urine Nitrite Urine Bilirubin Urine Urobilinogen Ur Leukocyte Esterase Urine WBC (Auto) Urine RBC (Auto) Urine Mucus 3 11/02/17 11/02/17 11/02/17 16:17 16:17 16:17 WBC RBC Hgb Hct MCV MCH MCHC RDW Plt Count MPV Neutrophils % Lymphocytes % Monocytes % Eosinophils % Basophils % PT with INR 11.10 INR 0.98 PTT (Actin FS) D-Dimer VBG pH 7.35 POC VBG pCO2 41.6 POC VBG pO2 58.8 H Mixed VBG HCO3 22.3 Sodium Potassium Chloride Carbon Dioxide Anion Gap BUN Creatinine Creat Clearance w eGFR Random Glucose Lactic Acid Uric Acid Calcium Magnesium Total Bilirubin AST ALT Alkaline Phosphatase Creatine Kinase Troponin I Total Protein Albumin Urine Color Straw Urine Appearance Clear Urine pH 7.0 Ur Specific [place] 1.024 Urine Protein Negative Urine Glucose (UA) Negative Urine Ketones Negative Urine Blood 1+ H Urine Nitrite Negative Urine Bilirubin Negative Urine Urobilinogen Negative Ur Leukocyte Esterase 3+ H D Urine WBC (Auto) 89 Urine RBC (Auto) 4 Urine Mucus Rare ECG Normal sinus rhythm vent rate 75, QTC 464 voltage criteria for LVH TWI lead 3, aVF, V3 Radiology Reports Left shoulder Impression: No gross bone or soft tissue abnormality seen. Reported By: Josie Riley MD 11/02/171909 CXR AP Impression No significant interval change or acute cardiopulmonary disease is present. Reported By: Josie Riley MD 11/02/171909 Chest CTA IMPRESSION: There is no evidence of a pulmonary embolus within the main pulmonary artery and its proximal bifurcations, bilaterally. Normal size and enhancement of the thoracic and abdominal aorta. Lymphoid hyperplasia in the ronel with suggestion of a slightly enlarged right hilar lymph node measuring 1.4 cm. No enlarged mediastinal lymph nodes are identified. Small hiatus hernia. Likely tiny left renal cyst measuring 7.5 mm Reported By: Josie Riley MD 11/02/171954 US doppler venous bilat LE Impression: There is no evidence of deep venous thromboses in both lower extremities. Reported By: Josie Riley MD 11/02/171815 US doppler LUE IMPRESSION: There is no evidence of deep venous thrombosis in the left upper extremity including the jugular and subclavian vein. Reported By: Josie Riley MD 11/02/171816 ASSESSMENT/PLAN: 57yF with PMH chronic arthritis, HTN, HLD, asthma, borderline DM presented to the ED with a 2 month history of L arm/shoulder pain which is worse today and radiating to her left chest. She also reports fever x 1 day. Chest pain - will r/o ACS although highly unlikely - trop neg x 2, trend x 1 more - ASA given in ED Left shoulder pain - cont home meds: meloxicam, percocet, flexeril - ortho consult UTI - will cont ceftriaxone, follow cultures HTN/HLD - cont home losartan, home zocor changed to formulary lipitor asthma - home advair changed to formulary symbicort DVT ppx - deferred, anticipated LOS <48h FEN - tolerating po - bMP in am - low sodium diabetic diet as tolerated Dispo: pt currently requires further observation for management of her emergent condition. Visit type - Emergency Visit Emergency Visit: Yes ED Registration Date: 11/02/17 Care time: The patient presented to the Emergency Department on the above date and was hospitalized for further evaluation of their emergent condition. - New Patient This patient is new to me today: Yes Date on this admission: 11/03/17 - Critical Care Critical Care patient: No Hospitalist Screening - Colonoscopy Questionnaire Colonoscopy Questionnaire: Colonoscopy Questionnaire - Patient: 50 - 75 years old and never had a screening colonoscopy: Unknown History of colon or rectal polyps, or CA: No History of IBD, Crohn's disease or UC: No History of abdominal radiation therapy as a child: No - Relative: 1 with colon or rectal CA, or polyps at age 60 or younger: Unknown Colon or rectal CA diagnosed at age 45 or younger: Unknown Multiple relatives with colon or rectal CA: Unknown - Outcome: Screening Result: Negative Screen
[2017-11-03] MEDS ORDERED: ACETAMINOPHEN 325 MG TABLET (FP) PO PRN (02:00)
[2017-11-03 03:48] VITALS: BMI 34.0
[2017-11-03] MEDS: oxyCODONE HCL 5 MG TABLET PO PRN ×3 (06:15→18:30)
[2017-11-03] MEDS: ACETAMINOPHEN 325 MG TABLET (FP) PO PRN ×2 (09:42→18:48)
[2017-11-03] MEDS: LOSARTAN POTASSIUM 50 MG TABLET (FP) PO SCH (09:42)
[2017-11-03] MEDS: PANTOPRAZOLE 40 MG TABLET (FP) PO SCH (09:42)
[2017-11-03] MEDS ORDERED: PATIENT'S OWN MEDICATION (NON-FORMULARY) (Meloxicam [Meloxicam] 7.5 MG) PO SCH (10:00)
--- NOTE | 2017-11-03 10:12 | CONSULT ---
Consult - text type - Consultation Consultation Note: Asked to eval this 57F for left shoulder pain. Patient states pain started two months ago without injury. Pain has been severe despite taking percocet daily. She went to ER at [facility] on 10/14 for the same complaint and sent home on Ibuprofen. However, nothing helps. Pain radiates to left lateral arm. She had a steroid injection in the shoulder given to her by her pain management doctor a month ago without relief. Admitted last night with UTI and one day of fever. PMH:chronic arthritis, HTN, HLD, borderline DM PSH: Right shoulder arthroscopy/left TKR/abdominal hernia repair Meds: reviewed in chart All: NKDA FH: n/c SH: denies etoh/cig/ivda ROS: fevers one day; no chills, weight loss. PE: Afeb Awake, alert, oriented x 3 Tender to palpation anterior left shouder, no redness or fluctuance AFE only to 100 degrees with pain, PFE to 130. Less pain with ER with arm to the side. IR very limited Elbow and wrist ROM without pain, motor 5/5 Otherwise BLE motor, ROM intact Nontender in the spine No peripheral edema Labs: WBC 9.9 Xrays: No fx. Acromioclavicular joint arthrosis Imp: Severe left [place] atraumatic pain for 2 months with element of adhesive capsulitis -recommend MRi of the left shoulder given duration and severity of the pain, significant loss of ROM, and failure to respond to steroid injection -no active signs of infection. Infection unlikely given duration of symptoms, clinical exam, and normal white count. Fever of one day likely related to UTI. -Dr Lugo to follow after MRI is done
[2017-11-03] MEDS: BUDESONIDE/FORMETEROL FUMARATE 80/4.5 mcg INHALER IH SCH ×2 (11:20→22:30)
--- NOTE | 2017-11-03 11:44 | EKG ---
Test Reason : Blood Pressure : / mmHG Vent. Rate : 075 BPM Atrial Rate : 075 BPM P-R Int : 154 ms QRS Dur : 094 ms QT Int : 416 ms P-R-T Axes : 051 -03 -05 degrees QTc Int : 464 ms NORMAL SINUS RHYTHM VOLTAGE CRITERIA FOR LEFT VENTRICULAR HYPERTROPHY ABNORMAL ECG WHEN COMPARED WITH ECG OF 14-OCT-2017 04:14, NO SIGNIFICANT CHANGE WAS FOUND Confirmed by INDRA CASTANEDA, EMERSON ([id number]) on 11/03/2017 11:44:15 AM Referred By: Confirmed By:EMERSON BURRELL MD
[2017-11-03] MEDS ORDERED: KETOROLAC TROMETHAMINE 30 MG/1 ML VIAL IVPUSH ONE (13:30)
--- NOTE | 2017-11-03 13:36 | PN ---
Physical Exam: SUBJECTIVE: Patient seen and examined, patient reports left shoulder pain that worsens upon movement, patient denies any chest pain or shortness of breath. OBJECTIVE: Patient is a 57 year old female with a significant past medical history of chronic arthritis, HTN, HLD, and borderline DM. Patient was admitted from the emergency department to observation for emergent condition. Vital Signs Period Temp Pulse Resp BP Sys/Fitch Pulse Ox Last 24 Hr 98.4 F-101 F 76-92 18-20 123-144/68-95 96-100 GENERAL: The patient is awake, alert, and fully oriented, in no acute distress. HEAD: Normal with no signs of trauma. EYES: PERRL, extraocular movements intact, sclera anicteric, conjunctiva clear. No ptosis. ENT: Ears normal, nares patent, oropharynx clear without exudates, moist mucous membranes. NECK: Trachea midline, full range of motion, supple. LUNGS: Breath sounds equal, clear to auscultation bilaterally, no wheezes, no crackles, no accessory muscle use. HEART: Regular rate and rhythm, S1, S2 without murmur, rub or gallop. ABDOMEN: Soft, nontender, nondistended, normoactive bowel sounds, no guarding, no rebound, no hepatosplenomegaly, no masses. EXTREMITIES: 2+ pulses, warm, well-perfused, no edema. left shoulder, pain upon ROM to proximal lateral shoulder with tenderness, no induration no fluctance. NEUROLOGICAL: Cranial nerves II through XII grossly intact. Normal speech, gait not observed. PSYCH: Normal mood, normal affect. SKIN: Warm, dry, normal turgor, no rashes or lesions noted Laboratory Results - last 24 hr 11/02/17 11/02/17 11/02/17 16:17 16:17 16:17 WBC 9.9 D RBC 3.90 Hgb 10.1 L Hct 30.0 L MCV 76.9 L MCH 26.0 MCHC 33.8 RDW 14.1 D Plt Count 318 MPV 7.9 D Neutrophils % 74.8 D Lymphocytes % 16.2 D Monocytes % 6.9 Eosinophils % 1.8 Basophils % 0.3 PT with INR INR PTT (Actin FS) 29.0 D-Dimer VBG pH POC VBG pCO2 POC VBG pO2 Mixed VBG HCO3 Sodium 135 L Potassium 3.9 Chloride 100 Carbon Dioxide 26 Anion Gap 9 BUN 9 Creatinine 0.8 Creat Clearance w eGFR > 60 Random Glucose 100 Lactic Acid Uric Acid Calcium 8.2 L Magnesium Total Bilirubin 0.3 D AST 20 ALT 24 Alkaline Phosphatase 84 Creatine Kinase 75 Troponin I < 0.02 Total Protein 6.8 Albumin 3.5 Urine Color Urine Appearance Urine pH Ur Specific Sumner Urine Protein Urine Glucose (UA) Urine Ketones Urine Blood Urine Nitrite Urine Bilirubin Urine Urobilinogen Ur Leukocyte Esterase Urine WBC (Auto) Urine RBC (Auto) Urine Mucus 11/02/17 11/02/17 11/02/17 16:17 16:17 16:17 WBC RBC Hgb Hct MCV MCH MCHC RDW Plt Count MPV Neutrophils % Lymphocytes % Monocytes % Eosinophils % Basophils % PT with INR 11.10 INR 0.98 PTT (Actin FS) D-Dimer VBG pH 7.35 POC VBG pCO2 41.6 POC VBG pO2 58.8 H Mixed VBG HCO3 22.3 Sodium Potassium Chloride Carbon Dioxide Anion Gap BUN Creatinine Creat Clearance w eGFR Random Glucose Lactic Acid Uric Acid Calcium Magnesium Total Bilirubin AST ALT Alkaline Phosphatase Creatine Kinase Troponin I Total Protein Albumin Urine Color Straw Urine Appearance Clear Urine pH 7.0 Ur Specific Sumner 1.024 Urine Protein Negative Urine Glucose (UA) Negative Urine Ketones Negative Urine Blood 1+ H Urine Nitrite Negative Urine Bilirubin Negative Urine Urobilinogen Negative Ur Leukocyte Esterase 3+ H D Urine WBC (Auto) 89 Urine RBC (Auto) 4 Urine Mucus Rare 11/02/17 11/02/17 11/02/17 16:17 16:17 16:17 WBC RBC Hgb Hct MCV MCH MCHC RDW Plt Count MPV Neutrophils % Lymphocytes % Monocytes % Eosinophils % Basophils % PT with INR INR PTT (Actin FS) D-Dimer 971 H VBG pH POC VBG pCO2 POC VBG pO2 Mixed VBG HCO3 Sodium Potassium Chloride Carbon Dioxide Anion Gap BUN Creatinine Creat Clearance w eGFR Random Glucose Lactic Acid 2.1 H Uric Acid Calcium Magnesium 2.3 Total Bilirubin AST ALT Alkaline Phosphatase Creatine Kinase Troponin I Total Protein Albumin Urine Color Urine Appearance Urine pH Ur Specific Sumner Urine Protein Urine Glucose (UA) Urine Ketones Urine Blood Urine Nitrite Urine Bilirubin Urine Urobilinogen Ur Leukocyte Esterase Urine WBC (Auto) Urine RBC (Auto) Urine Mucus 11/02/17 11/02/17 16:32 23:40 WBC RBC Hgb Hct MCV MCH MCHC RDW Plt Count MPV Neutrophils % Lymphocytes % Monocytes % Eosinophils % Basophils % PT with INR INR PTT (Actin FS) D-Dimer VBG pH POC VBG pCO2 POC VBG pO2 Mixed VBG HCO3 Sodium Potassium Chloride Carbon Dioxide Anion Gap BUN Creatinine Creat Clearance w eGFR Random Glucose Lactic Acid Uric Acid 5.4 Calcium Magnesium Total Bilirubin AST ALT Alkaline Phosphatase Creatine Kinase 69 Troponin I < 0.02 Total Protein Albumin Urine Color Urine Appearance Urine pH Ur Specific Sumner Urine Protein Urine Glucose (UA) Urine Ketones Urine Blood Urine Nitrite Urine Bilirubin Urine Urobilinogen Ur Leukocyte Esterase Urine WBC (Auto) Urine RBC (Auto) Urine Mucus Active Medications Generic Name Dose Route Start Last Admin Trade Name Freq PRN Reason Stop Dose Admin Acetaminophen 650 mg 11/03/17 09:15 11/03/17 09:42 Tylenol - PO 650 mg Q6H PRN Administration PAIN LEVEL 1-5 Atorvastatin Calcium 10 mg 11/03/17 22:00 Lipitor - PO HS [facility] Budesonide/Formoterol Fumarate 2 puff 11/03/17 10:00 11/03/17 11:20 Symbicort 80/4.5mcg - IH 2 inh BID ERIN Administration Cyclobenzaprine HCl 10 mg 11/03/17 01:24 Flexeril - PO Q12H PRN MUSCLE SPASMS/PAIN Ceftriaxone Sodium 1 gm/ 50 mls @ 100 mls/hr 11/03/17 22:00 Dextrose IVPB HS [facility] Losartan Potassium 100 mg 11/03/17 10:00 11/03/17 09:42 Cozaar - PO 100 mg DAILY ERIN Administration Meclizine HCl 25 mg 11/03/17 01:24 Antivert - PO DAILY PRN dizziness Non-Formulary Medication 7.5 mg 11/03/17 10:00 Meloxicam [Meloxicam] PO DAILY [facility] Oxycodone HCl 10 mg 11/03/17 01:59 11/03/17 13:14 Roxicodone - PO 10 mg Q6H PRN Administration PAIN LEVEL 6-10 Pantoprazole Sodium 40 mg 11/03/17 10:00 11/03/17 09:42 Protonix - PO 40 mg DAILY ERIN Administration ECG Normal sinus rhythm vent rate 75, QTC 464 voltage criteria for LVH TWI lead 3, aVF, V3 Radiology Reports Left shoulder Impression: No gross bone or soft tissue abnormality seen. Reported By: Josie Riley MD 11/02/171909 CXR AP Impression No significant interval change or acute cardiopulmonary disease is present. Reported By: Josie Riley MD 11/02/171909 Chest CTA IMPRESSION: There is no evidence of a pulmonary embolus within the main pulmonary artery and its proximal bifurcations, bilaterally. Normal size and enhancement of the thoracic and abdominal aorta. Lymphoid hyperplasia in the ronel with suggestion of a slightly enlarged right hilar lymph node measuring 1.4 cm. No enlarged mediastinal lymph nodes are identified. Small hiatus hernia. Likely tiny left renal cyst measuring 7.5 mm Reported By: Josie Riley MD 11/02/171954 US doppler venous bilat LE Impression: There is no evidence of deep venous thromboses in both lower extremities. Reported By: Josie Riley MD 11/02/171815 US doppler LUE IMPRESSION: There is no evidence of deep venous thrombosis in the left upper extremity including the jugular and subclavian vein. Reported By: Josie Riley MD 11/02/171816 ASSESSMENT/PLAN: 1) cardiovascular Chest pain r/o acs - troponin x 2 wnl, ekg nsr lvh unchanged from prior - continue daily asa hypertension - continue losartan, b/p at goal HLD - continue lipitor 2) MS Left shoulder pain - ortho consulted, Dr Lugo recommends MRI of upper extremity (left) - continue meloxicam, percocet, flexeril 3) UTI - cont ceftriaxone until urine culture are resulted. 4) pulm asthma - no acute excerbation at this time, continue symbicort DVT ppx - deferred, anticipated LOS <48h FEN - tolerating po - low sodium diabetic diet as tolerated Dispo: pt currently requires further observation for management of her emergent condition. Visit type - Emergency Visit Emergency Visit: Yes ED Registration Date: 11/02/17 Care time: The patient presented to the Emergency Department on the above date and was hospitalized for further evaluation of their emergent condition. - New Patient This patient is new to me today: No - Critical Care Critical Care patient: No - Discharge Referral Referred to [facility] Med P.C.: No
[2017-11-03] MEDS ORDERED: cefTRIAXone SODIUM 1 GM VIAL ONE (21:36)
[2017-11-03] MEDS ORDERED: DEXTROSE 5%-WATER - 50 ML IVPB ONE (21:36)
[2017-11-03] MEDS ORDERED: CEFTRIAXONE 1 GM in DEXTROSE 5%-WATER - 50 ML IVPB SCH (22:00)
[2017-11-03] MEDS ORDERED: ATORVASTATIN CA 10 MG TABLET (FP) PO SCH (22:00)
[2017-11-04] MEDS: ACETAMINOPHEN 325 MG TABLET (FP) PO PRN ×2 (02:12→08:16)
[2017-11-04 07:29] LABS: BASO % 0.2 % (0-2.0); EOS % 2.3 % (0-4.5); HEMATOCRIT 29.5 % (32.4-45.2); HEMOGLOBIN 9.9 GM/dL (10.7-15.3); LYMPH % 21.5 % (8-40); MCH 25.7 pg (25.7-33.7); MCHC 33.5 g/dl (32.0-36.0); MEAN CELL VOLUME 76.7 fl (80-96); MEAN PLT VOLUME 8.2 fl (7.5-11.1); MONO % 10.7 % (3.8-10.2); NEUT % 65.3 % (42.8-82.8); PLATELET COUNT 286 K/MM3 (134-434); RBC 3.84 M/mm3 (3.60-5.2); RDW 13.9 % (11.6-15.6)
[2017-11-04 07:53] LABS: CHLORIDE 102 mmol/L (98-107); POTASSIUM 4.3 mmol/L (3.5-5.1); SODIUM 137 mmol/L (136-145)
[2017-11-04 08:07] LABS: ANION GAP 9 (8-16); BLOOD UREA NITROGEN 11 mg/dL (7-18); CALCIUM 8.2 mg/dL (8.5-10.1); CO2 26 mmol/L (21-32); CREATININE 0.8 mg/dL (0.55-1.02); GLUCOSE,RANDOM 106 mg/dL (74-106); MAGNESIUM 2.4 mg/dL (1.8-2.4); PHOSPHOROUS 4.2 mg/dL (2.5-4.9)
[2017-11-04] MEDS: oxyCODONE HCL 5 MG TABLET PO PRN ×2 (08:13→13:08)
[2017-11-04] MEDS: PANTOPRAZOLE 40 MG TABLET (FP) PO SCH (09:55)
[2017-11-04] MEDS: LOSARTAN POTASSIUM 50 MG TABLET (FP) PO SCH (09:55)
[2017-11-04] MEDS: BUDESONIDE/FORMETEROL FUMARATE 80/4.5 mcg INHALER IH SCH (09:56)
--- NOTE | 2017-11-04 12:14 | DS ---
Physical Exam: SUBJECTIVE: Patient seen and examined, patient denies any chest pain or shortness of breath, reports minimal pain to left shoulder. OBJECTIVE:This is a 57 year old female with a significant past medical history of chronic arthritis, HTN, HLD, borderline DM who presented to the ED with a 2 month history of left shoulder pain radiating to her back and chest. She reports the pain was more severe today prompting her to come to the ED. She also reports fever x 1 day. ER course was notable for: (1) Troponin negative x 2 (2) U/a with 3+ leuk esterase (3) temp 101 Vital Signs Period Temp Pulse Resp BP Sys/Fitch Pulse Ox Last 24 Hr 98.4 F-100.6 F 76-96 18-20 120-156/54-88 97 PHYSICAL EXAM GENERAL: The patient is awake, alert, and fully oriented, in no acute distress. HEAD: Normal with no signs of trauma. EYES: PERRL, extraocular movements intact, sclera anicteric, conjunctiva clear. ENT: Ears normal, nares patent, oropharynx clear without exudates, moist mucous membranes. NECK: Trachea midline, full range of motion, supple. LUNGS: Breath sounds equal, clear to auscultation bilaterally, no wheezes, no crackles, no accessory muscle use. HEART: Regular rate and rhythm, S1, S2 without murmur, rub or gallop. ABDOMEN: Soft, nontender, nondistended, normoactive bowel sounds, no guarding, no rebound, no hepatosplenomegaly, no masses. left shoulder, pain upon ROM to proximal lateral shoulder with tenderness upon palpation. no induration no fluctance. EXTREMITIES: 2+ pulses, warm, well-perfused, no edema. NEUROLOGICAL: Cranial nerves II through XII grossly intact. Normal speech, gait not observed. PSYCH: Normal mood, normal affect. SKIN: Warm, dry, normal turgor, no rashes or lesions noted. LABS Laboratory Results - last 24 hr 11/04/17 11/04/17 06:45 06:45 WBC 7.0 RBC 3.84 Hgb 9.9 L Hct 29.5 L MCV 76.7 L MCH 25.7 MCHC 33.5 RDW 13.9 Plt Count 286 MPV 8.2 Neutrophils % 65.3 Lymphocytes % 21.5 D Monocytes % 10.7 H Eosinophils % 2.3 Basophils % 0.2 Sodium 137 Potassium 4.3 Chloride 102 Carbon Dioxide 26 Anion Gap 9 BUN 11 Creatinine 0.8 Random Glucose 106 Calcium 8.2 L Phosphorus 4.2 Magnesium 2.4 Creatine Kinase 56 Troponin I < 0.02 Laboratory Tests 11/02/17 11/02/17 11/04/17 16:17 23:40 06:45 Troponin I < 0.02 < 0.02 < 0.02 Microbiology 11/02/17 16:17 Urine - Urine Clean Catch Urine Culture - Preliminary Lactose Fermenting Neg Bacilli 11/02/17 16:17 Blood - Peripheral Venous Blood Culture - Preliminary NO GROWTH OBTAINED AFTER 24 HOURS, INCUBATION TO CONTINUE FOR 4 DAYS. 11/02/17 16:17 Blood - Peripheral Venous Blood Culture - Preliminary NO GROWTH OBTAINED AFTER 24 HOURS, INCUBATION TO CONTINUE FOR 4 DAYS. ECG Normal sinus rhythm vent rate 75, QTC 464 voltage criteria for LVH TWI lead 3, aVF, V3 Radiology Reports Left shoulder Impression: No gross bone or soft tissue abnormality seen. Reported By: Josie Riley MD 11/02/171909 CXR AP Impression No significant interval change or acute cardiopulmonary disease is present. Reported By: Josie Riley MD 11/02/171909 Chest CTA IMPRESSION: There is no evidence of a pulmonary embolus within the main pulmonary artery and its proximal bifurcations, bilaterally. Normal size and enhancement of the thoracic and abdominal aorta. Lymphoid hyperplasia in the ronel with suggestion of a slightly enlarged right hilar lymph node measuring 1.4 cm. No enlarged mediastinal lymph nodes are identified. Small hiatus hernia. Likely tiny left renal cyst measuring 7.5 mm Reported By: Josie Riley MD 11/02/171954 US doppler venous bilat LE Impression: There is no evidence of deep venous thromboses in both lower extremities. Reported By: Josie Riley MD 11/02/171815 US doppler LUE IMPRESSION: There is no evidence of deep venous thrombosis in the left upper extremity including the jugular and subclavian vein. Reported By: Josie Riley MD 11/02/171816 MRI of upper joint w/o contrast: moderate glenohumeral joint effusion and moderate amount of subacromial and subdeltoid fluid. high grade partial bursal surface tear of the mid to posterior supraspinatus tendon extending into the intraspinatous tendon and intersitial tear of the intraspinatus muscultendinous junction. Reported by Dr Hopson [facility] COURSE: 1)Chest pain r/o acs - troponin x 3 wnl, ekg nsr lvh unchanged from prior - continue aspirin daily hypertension - blood pressure remained at goal, continued losartan HLD - continued lipitor 2) MS Left shoulder pain - MRI of left upper extremity noted as above, sling ordered, patient will require outpatient follow up with orthopedist - continue meloxicam, percocet, flexeril 3) UTI - urine culture, preliminary positive for lactose fermenting bacteria, treated with ceftriaxone then transitioned to macrobid 4) pulm asthma - no acute excerbation at this time, continue symbicort Date of Admission:11/02/17 Date of Discharge: 11/04/17 Minutes to complete discharge: 45 Discharge Summary Reason For Visit: UTI/FEVER/CHRONIC LEFT SHOULDER PAIN Current Active Problems Chest pain (Acute) Chronic left shoulder pain (Acute) Fever (Acute) UTI (urinary tract infection) (Acute) Condition: Fair - Instructions Diet, Activity, Other Instructions: your urine was positive for bacteria, please continue macrobid (antibiotic) as prescribed your MRI of left shoulder was abnormal for tears to the tendons, use the sling while awake, continue meloxicam for pain. Take oxycodone for severe pain, do not drive when taking oxycodone. Please follow up with the orthopedist within 1 week. continue all medications as prescribed if any new or persistent symptoms develop please return to the emergency department. Referrals: Boni Lugo MD [Staff Physician] - Grisel Rivera MD [Primary Care Provider] - Disposition: HOME - Home Medications Comprehensive Discharge Medication List: Ambulatory Orders Cetirizine HCl 10 mg PO DAILY 01/01/17 Cyclobenzaprine HCl [Flexeril 10 mg] 10 mg PO BID PRN 01/01/17 Fexofenadine HCl 180 mg PO DAILY 01/01/17 Simvastatin 20 mg PO HS 01/01/17 Fluticasone Prop 0.05% Nasal [Flonase -] 1 spray NS DAILY 07/17/17 Meclizine HCl 25 mg PO DAILY 07/17/17 Pantoprazole Sodium 40 mg PO DAILY 07/17/17 Fluticasone/Salmeterol [Advair 250-50 Diskus] 1 each IH BID 11/03/17 Losartan Potassium [Cozaar] 100 mg PO DAILY 11/03/17 Meloxicam 7.5 mg PO DAILY 11/03/17 Oxycodone HCl/Acetaminophen [Oxycodone-Acetaminophen 10-325] 1 each PO Q6H PRN 11/03/17 This patient is new to me today: No Emergency Visit: Yes ED Registration Date: 11/02/17 Care time: The patient presented to the Emergency Department on the above date and was hospitalized for further evaluation of their emergent condition. Critical Care patient: No - Discharge Referral Referred to [facility] Med [facility].C.: No
[2017-11-04] MEDS ORDERED: NITROFURANTOIN MACROCRYSTAL 50 MG CAPSULE (FP) PO SCH (13:10)
[2017-11-04 13:48] VITALS: BP 150/80; PULSE 94; TEMP 99.6
== END 2017-11-04 15:20 | disposition home or self-care (01) ==
LOC: JER 15:05 → JERBED 23:34 → UNDOADMOB 23:54 → J4W 11-03 00:59
PROVIDERS: ADMIT Internal Medicine; ATTEND Nurse Practitioner Family
PROC: 3E0333Z Introduction of Anti-inflammatory into Peripheral Vein, Percutaneous Approach (ICD-10-PCS; principal; 2017-11-02)
PROC: 3E033NZ Introduction of Analgesics, Hypnotics, Sedatives into Peripheral Vein, Percutaneous Approach (ICD-10-PCS; 2017-11-02)
PROC: 3E0337Z Introduction of Electrolytic and Water Balance Substance into Peripheral Vein, Percutaneous Approach (ICD-10-PCS; 2017-11-02)
PROC: 3E0F7GC Introduction of Other Therapeutic Substance into Respiratory Tract, Via Natural or Artificial Opening (ICD-10-PCS; 2017-11-02)
DX: R07.9 Chest pain, unspecified (principal); N39.0 Urinary tract infection, site not specified; R50.9 Fever, unspecified; M25.512 Pain in left shoulder; G89.29 Other chronic pain; I10 Essential (primary) hypertension; E11.9 Type 2 diabetes mellitus without complications; E03.9 Hypothyroidism, unspecified; E78.5 Hyperlipidemia, unspecified; M19.90 Unspecified osteoarthritis, unspecified site; J45.909 Unspecified asthma, uncomplicated; Z96.652 Presence of left artificial knee joint
CPT/HCPCS: 36415; 71045-TC-FY; 71275-TC; 73030-TC-LT-FY; 73221-TC-LT; 80048; 80053; 81003; 81015; 82550; 82803; 83605; 83735; 84100; 84484; 84550; 85025; 85379; 85610; 85730; 87040; 87086; 87186; 93005; 93010; 93970-TC; 93971; 94640; 96365; 96375; 96376; 99284-25; G0378; J0131; J7030

== ENCOUNTER 2018-01-05 07:53 | Day surgery (SDC) | payer OTHER ==
[2017-12-30 13:05] VITALS: BMI 31.7
[2018-01-05] MEDS ORDERED: KETOROLAC TROMETHAMINE 30 MG/1 ML VIAL ONE (08:31)
[2018-01-05] MEDS ORDERED: DEXAMETHASONE SOD PHOSPHATE 4 MG/1 ML VIAL ONE ×2 (08:31→11:12)
[2018-01-05] MEDS ORDERED: ONDANSETRON 4 MG/2 ML VIAL ONE ×2 (08:31→11:12)
[2018-01-05] MEDS ORDERED: PROPOFOL 20 ML ONE ×4 (08:32→14:16)
[2018-01-05] MEDS ORDERED: MIDAZOLAM HCL 2 MG/2 ML SINGLE DOSE VIAL ONE ×2 (08:32)
[2018-01-05] MEDS ORDERED: ROPIVACAINE HCL 0.5% 30ML VIAL ONE (10:28)
--- NOTE | 2018-01-05 11:11 | OP ---
Operative Note - Note: Operative Date: 01/05/18 Pre-Operative Diagnosis: left shoulder rotator cuff tear Operation: left shoulder arthroscopy with rotator cuff repair (supra/infra/ subscap) and biceps tenodesis Implants: swivel lock x5 q fix x1 Post-Operative Diagnosis: Same as Pre-op Surgeon: Boni Lugo Production Maintenance Mechanic: Isidoro Hernandez Anesthesia: General, Fractional Operative Report Dictated: Yes
[2018-01-05] MEDS ORDERED: ceFAZolin SODIUM 1 GM VIAL ONE (11:12)
[2018-01-05] MEDS ORDERED: EPINEPHrine 1:1,000 1 MG/1 ML - 30ML VIAL (INJECTION) ONE ×2 (11:20→14:17)
[2018-01-05] MEDS ORDERED: BUPIVACAINE HCL/PF 2.5 MG/ML - 30 ML VIAL IJ ONE (11:23)
[2018-01-05] MEDS ORDERED: SEVOFLURANE 250 ML BTL ONE (11:52)
[2018-01-05] MEDS ORDERED: DESFLURANE GAS 240 ML BOTTLE IH ONE (11:52)
[2018-01-05] MEDS ORDERED: LIDOCAINE HCL/PF 2% SDV 5ML VIAL ONE (12:34)
[2018-01-05] MEDS ORDERED: ACETAMINOPHEN INJECTION 100 ML IVPB ONE (14:40)
[2018-01-05] MEDS ORDERED: ONDANSETRON 4 MG/2 ML VIAL IVPUSH PRN (14:44)
[2018-01-05] MEDS ORDERED: ACETAMINOPHEN 1000 MG/100 ML VIAL (NON FORMULARY) IVPB ONE (14:45)
[2018-01-05] MEDS ORDERED: oxyCODONE HCL 5 MG TABLET PO PRN ×2 (14:45)
[2018-01-05] MEDS ORDERED: LACTATED RINGERS SOLUTION 1,000 ML IV SCH (14:45)
[2018-01-05] MEDS ORDERED: ACETAMINOPHEN 325 MG TABLET (FP) PO SCH ×2 (14:45→20:47)
[2018-01-05 15:45] VITALS: TEMP 97.6
[2018-01-05 17:03] VITALS: BP 143/84; PULSE 82
--- NOTE | 2018-01-16 15:19 | OP ---
DATE OF OPERATION: 01/05/2018 PREOPERATIVE DIAGNOSES: Left shoulder rotator cuff tear, biceps tendinosis. POSTOPERATIVE DIAGNOSES: Left shoulder rotator cuff tear, biceps tendinosis. PROCEDURE: 1. Left shoulder arthroscopy with rotator cuff repair including subscapularis, supraspinatus, and infraspinatus. 2. Biceps tenodesis. SURGEON: Boni Lugo MD RADIOLOGY EQUIPMENT SERVICER: DARIUS Doty, whose skillful assistance was necessary for the safe and timely performance of this procedure. Mr. Hernandez was able to help drive the camera, provide patient positioning, assist in passage of sutures as well as the insertion of orthopedic fixation hardware. ANESTHESIA: Regional plus sedation. POSTOPERATIVE CONDITION: Stable. IMPLANTS: Arthrex SwiveLock x5, [employer] Q-FIX x1. INDICATIONS: This is a pleasant 57-year-old female who has been suffering from left shoulder pain. Failed to improve with more-conservative measures. MRI demonstrated full-thickness rotator cuff tearing. Treatment options including nonoperative versus operative treatment were reviewed. Operative risks were reviewed in detail including bleeding, infection, neurovascular injury, need for further surgery, postoperative pain and stiffness, re-tear. We discussed medical risks such as heart attack, stroke, DVT, PE, and . I addressed all the patient's questions and concerns. She voiced understanding and elected to proceed. It should be noted we also discussed the postoperative rehabilitation protocol and prolonged recovery from this type of surgery. DESCRIPTION OF PROCEDURE: The patient was brought to the operating room after administration of a regional block in the preoperative holding area. The patient was placed into the beach chair position, careful to pad all the bony prominences. The left upper extremity was examined, demonstrated full range of motion and good stability. Patient was then prepped and draped in usual sterile fashion. A preoperative dose of IV antibiotics was given, and the usual timeout procedure was performed. The portal sites were then marked out. The posterior portal was now incised with an 11 blade. The arthroscope was then passed into the glenohumeral joint. Initially seen was a great deal of synovitis. Examination of the humeral and glenoid surfaces demonstrated only mild degenerative change. The labrum appeared intact. The biceps tendon was examined, demonstrated significant fraying in the anterior portion of the tendon adjacent to the subscapularis. Examination of the subscapularis demonstrated that there were a few fibers still intact inferiorly. However, the majority had been avulsed off of the lesser tuberosity. The arthroscope was then passed up, where the supraspinatus and infraspinatus were also seen to have full-thickness detachment. Initially, the decision was made to perform a biceps tenodesis. The anterior and lateral portals were established. Utilizing the lateral portal, a rasp was advanced down along the anterior portion of the bicipital groove to roughen up the surface and allow for healing. A Q-FIX anchor was then inserted just at the shoulder of the biceps groove as it turned to go anterior. This was using percutaneous technique. The suture was then passed utilizing a Scorpion suture-passing device through the biceps and wrapped around it, forming a double-looped construct. The tendon now securely fastened, the intraarticular portion was then resected using an arthroscopic biter as well as a shaver. Having completed this portion, attention was turned to the subscapularis. The shaver was used to debride the soft tissue off of the lesser tuberosity as well as the electrocautery. Utilizing Scorpion suture-passing device, 2 luggage-tag type sutures were placed, one more superior and one more inferior on the subscapularis. These were then loaded into a SwiveLock anchor which was punched and then inserted at the lateral aspect of the lesser tuberosity, reducing the subscapularis onto the footprint. The arthroscope was now removed from the glenohumeral joint and passed into the subacromial space. A bursectomy was now performed. In addition, the undersurface of the acromion was smoothed using the shaver. The footprint was debrided using electrocautery as well as the shaver on the greater tuberosity. Decision was made to perform a double-row repair. Two medial row anchors were inserted using the punch and then screwing the anchors into place. The sutures were then passed through the rotator cuff and then placed into a crossing fashion. They were then secured into the 2 lateral row anchors. This secured the anterior two-thirds of the tear. Utilizing the extra sutures and the lateral anchor, this was passed in a horizontal mattress fashion through the most-posterior portion of the rotator cuff, securing this down as well. At this point, the shoulder was passed through a range of motion and found to be stable. The excess fluid was withdrawn from the joint, and portals were sutured using 3-0 nylon. Sterile dressings were placed. Patient was transferred to recovery room in stable condition. Darlene [id number]
== END 2018-01-05 16:35 | disposition home or self-care (01) ==
LOC: FASU 07:53
PROVIDERS: ATTEND Orthopaedic Surgery Sports Medicine
PROC: 0LS14ZZ Reposition Right Shoulder Tendon, Percutaneous Endoscopic Approach (ICD-10-PCS; 2018-01-05)
PROC: 0LQ14ZZ Repair Right Shoulder Tendon, Percutaneous Endoscopic Approach (ICD-10-PCS; principal; 2018-01-05 11:54)
DX: M75.101 Unspecified rotator cuff tear or rupture of right shoulder, not specified as traumatic (principal); M65.811 Other synovitis and tenosynovitis, right shoulder; M75.21 Bicipital tendinitis, right shoulder
CPT/HCPCS: 94760; J0131

== ENCOUNTER 2018-05-13 20:41 | Emergency (ER) | payer OTHER ==
[2018-05-13 20:52] VITALS: BP 165/64; PULSE 69; TEMP 98.2; BMI 30.9
[2018-05-13] MEDS ORDERED: IBUPROFEN 600 MG TABLET (FP) PO ONE ×2 (21:26→21:28)
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
== END 2018-05-13 21:45 | disposition home or self-care (01) ==
LOC: JERFT 20:41
DX: J02.9 Acute pharyngitis, unspecified (principal); I10 Essential (primary) hypertension; E78.00 Pure hypercholesterolemia, unspecified; R73.03 Prediabetes; E89.0 Postprocedural hypothyroidism
CPT/HCPCS: 87070; 99281-25

== ENCOUNTER 2018-07-23 20:02 | Emergency (ER) | payer OTHER ==
[2018-07-23 20:10] VITALS: TEMP 98; BMI 30.9
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
[2018-07-23 22:04] LABS: URINE APPEARANCE CLEAR; URINE BILIRUBIN NEGATIVE (<2.0 mg/dL); URINE COLOR COLORLESS; URINE GLUCOSE (UA) NEGATIVE (NEGATIVE); URINE KETONE NEGATIVE (NEGATIVE); URINE LEUK ESTERASE NEGATIVE (NEGATIVE); URINE NITRITE NEGATIVE (NEGATIVE); URINE PROTEIN 1+ (NEGATIVE); URINE UROBILINOGEN NEGATIVE mg/dL (0.2-1.0)
[2018-07-23 22:19] LABS: HEMATOCRIT 32.7 % (32.4-45.2); HEMOGLOBIN 11.4 GM/dL (10.7-15.3); MCH 27.6 pg (25.7-33.7); MCHC 34.9 g/dl (32.0-36.0); MEAN CELL VOLUME 79.1 fl (80-96); MEAN PLT VOLUME 8.5 fl (7.5-11.1); PLATELET COUNT 339 K/MM3 (134-434); RBC 4.13 M/mm3 (3.60-5.2); RDW 14.3 % (11.6-15.6); WHITE BLOOD COUNT 6.1 K/mm3 (4.0-10.0)
[2018-07-23 22:53] LABS: ALBUMIN 4.1 g/dl (3.4-5.0); ALK PHOS 88 U/L (45-117); ANION GAP 7 MMOL/L (8-16); BILIRUBIN,TOTAL 0.3 mg/dL (0.2-1); BLOOD UREA NITROGEN 11 mg/dL (7-18); CALCIUM 8.7 mg/dL (8.5-10.1); CHLORIDE 102 mmol/L (98-107); CO2 29 mmol/L (21-32); CREATININE 0.7 mg/dL (0.55-1.3); GLUCOSE,RANDOM 101 mg/dL (74-106); POTASSIUM 3.8 mmol/L (3.5-5.1); SGOT/AST 25 U/L (15-37); SGPT/ALT 28 U/L (13-61); SODIUM 139 mmol/L (136-145); TOT PROT 7.9 g/dl (6.4-8.2)
[2018-07-23 23:54] VITALS: BP 157/71; PULSE 77
--- NOTE | 2018-07-24 10:47 | EKG ---
Test Reason : Blood Pressure : / mmHG Vent. Rate : 078 BPM Atrial Rate : 078 BPM P-R Int : 160 ms QRS Dur : 090 ms QT Int : 416 ms P-R-T Axes : 060 013 011 degrees QTc Int : 474 ms NORMAL SINUS RHYTHM NORMAL ECG WHEN COMPARED WITH ECG OF 02-NOV-2017 19:26, T WAVE VARIATION Confirmed by JONATHAN JOHNSON MD ([id number]) on 07/24/2018 10:47:35 AM Referred By: Confirmed By:JONATHAN JOHNSON MD
== END 2018-07-24 00:04 | disposition home or self-care (01) ==
LOC: JER 20:02
DX: I10 Essential (primary) hypertension (principal); R11.10 Vomiting, unspecified; J45.909 Unspecified asthma, uncomplicated; E89.0 Postprocedural hypothyroidism; R73.03 Prediabetes; R42 Dizziness and giddiness
CPT/HCPCS: 36415; 80053; 81003; 81015; 82550; 82553; 84484; 85027; 93005; 93010; 99285-25

== ENCOUNTER 2018-08-24 06:10 | Day surgery (SDC) | payer OTHER ==
[2018-08-11 12:07] VITALS: BMI 30.9
[2018-08-24] MEDS ORDERED: DESFLURANE GAS 240 ML BOTTLE IH ONE (07:03)
[2018-08-24] MEDS ORDERED: EPINEPHrine 1:1,000 1 MG/1 ML - 30ML VIAL (INJECTION) ONE (07:20)
[2018-08-24] MEDS ORDERED: ROPIVACAINE HCL 0.5% 30ML VIAL ONE (07:21)
[2018-08-24] MEDS ORDERED: MIDAZOLAM HCL 2 MG/2 ML SINGLE DOSE VIAL ONE (07:21)
[2018-08-24] MEDS ORDERED: SCOPOLAMINE HYDROBROMIDE 1 PATCH PATCH.TD72 ONE (07:26)
[2018-08-24] MEDS ORDERED: PROPOFOL 20 ML ONE ×2 (08:02→08:11)
[2018-08-24] MEDS ORDERED: LIDOCAINE HCL/PF 2% SDV 5ML VIAL ONE (08:17)
[2018-08-24] MEDS ORDERED: ONDANSETRON 4 MG/2 ML VIAL ONE (08:17)
[2018-08-24] MEDS ORDERED: KETOROLAC TROMETHAMINE 30 MG/1 ML VIAL ONE (08:17)
[2018-08-24] MEDS ORDERED: DEXAMETHASONE SOD PHOSPHATE 4 MG/1 ML VIAL ONE (08:17)
[2018-08-24] MEDS ORDERED: ceFAZolin SODIUM 1 GM VIAL ONE ×2 (08:17→11:19)
[2018-08-24] MEDS ORDERED: ePHEDrine SULFATE 50 MG/1 ML AMPULE ONE (08:25)
[2018-08-24] MEDS ORDERED: PROMETHAZINE HCL 25 MG/1 ML VIAL IVPUSH PRN (11:51)
[2018-08-24] MEDS ORDERED: ONDANSETRON 4 MG/2 ML VIAL IVPUSH PRN (11:51)
[2018-08-24] MEDS ORDERED: oxyCODONE HCL 5 MG TABLET PO PRN ×2 (11:51)
[2018-08-24] MEDS ORDERED: BUPIVACAINE HCL/PF 0.5% (5MG/ML) 10 ML VIAL ONE (12:07)
--- NOTE | 2018-08-24 14:02 | OP ---
DATE OF OPERATION: 08/24/2018 PREOPERATIVE DIAGNOSIS: Right shoulder recurrent rotator cuff tear, recurrent acromioclavicular arthrosis, impingement. POSTOPERATIVE DIAGNOSIS: Right shoulder recurrent rotator cuff tear, recurrent acromioclavicular arthrosis, impingement. PROCEDURE: Right shoulder rotator cuff repair, subacromial decompression, revision distal clavicle resection and debridement. SURGEON: Boni Lugo MD [facility] OPERATOR: DARIUS Farfan whose skilled full assistance was necessary for the safe and timely performance of this procedure. Ms. Salomon was able to help provide limb positioning, retraction, drive the camera, suture passage as well as the insertion of orthopaedic fixation hardware while the certified ophthalmic surgical assistant was unavailable due to manipulating complex equipment. ANESTHESIA: LMA plus regional. POSTOPERATIVE CONDITION: Stable. COMPLICATIONS: Failure to repair subscapularis. IMPLANTS: Arthrex SwiveLock x2. INDICATIONS: This is a pleasant 57-year-old female who had previously been through 2 right shoulder surgeries and never got fully better. She had persistent pain was weakness and limited range of motion. Despite conservative care, she was not improving. We reviewed the option of repeat arthroscopy. This encompassed attempt to re-repair her rotator cuff. We discussed that sometimes the rotator cuff was not repairable. In this case, allograft can sometimes be utilized to help augment or enhance healing these situations. I reviewed surgical risks including bleeding, infection, neurovascular injury, need for further surgery, postoperative pain and stiffness, re-tear, weakness. We discussed that she had done quite well on the other side; however, it is felt that her clinical condition going into surgery was way better on the other side, and I do not expect her outcome to be quite as good. Her subscapularis in particular was noted to have significant atrophy and may not be repairable based on the preoperative MRI appearance. We also discussed there is some degree of arthritis in the joint. However, it is not to the point where shoulder arthroplasty is the best option. We reviewed the postoperative rehabilitation protocol. Reviewed activity limitations. I addressed all of the patient's questions and concerns as well as her family's. We utilized the [employer] pockets and pieces necktie operator phone to ensure that she had full understanding. The patient voiced understanding and elected to proceed. DESCRIPTION OF PROCEDURE: The patient was brought to the operating room after administration of regional block in the preoperative holding area. She was placed into the beach chair position careful to pad all of the bony prominences and placed her neck in a neutral position. The right upper extremity was examined demonstrating full range of motion. There was crepitus with range of motion. No instability. The skin portals were marked out. The patient was given a preoperative dose of antibiotics. The usual time-out procedure was performed. A posterior viewing portal was now established. Examination of the glenohumeral joint demonstrated diffuse frayed tissue. There was moderate arthrosis noted. The coracoid was visualized directly in the anterior portion of the joint. Examining the area of the subscapularis, there were no fibers that seemed to be intact. The biceps was not present. There was a band of anterior supraspinatus, which was healed from the previous procedure. There was an anchor noted in the midportion of the articular surface inferiorly with empty sutures. Additional sutures were noted in the greater tuberosity. The midportion of the supraspinatus as well as most of the infraspinatus was also avulsed. There was a delamination due to the infraspinatus. The anterior working portal was now established. This was done under spinal needle localization. An attempt was made at identifying the subscapularis tissue. Some white frayed tissue was noted in the interval anterior to the glenoid neck and posterior coracoid. A luggage tag suture was placed into this. Utilizing the blunt end of the switching stick, gentle dissection was performed both anterior, supine, and posterior to this. While immobilization was able to improve, it was still only 1[address] the lesser tuberosity. No additional tissue was identified in its interval; therefore, it was felt that a subscapularis repair was not possible. The internal surface of the coracoid was smooth. The labral tissue was debrided of any loose edges. The arthroscope was now passed into the subacromial space. It should be noted that while trying to visualize the subscapularis, the camera was placed into an anterolateral portal, and direct visualization was obtained of the interval where the subscapularis should have been. The camera now in the subacromial space. There was fraying on the subacromial surface. Utilizing electrocautery, this was debrided down, and a shaver was used to shave out uneven areas in the undersurface. The rotator cuff was debrided of any nonviable tissue, and the interval between the delaminated portion of the infraspinatus was also debrided. Two luggage tag sutures were placed in the inferior leaflet of the infraspinatus. These were then held for other use. The footprint of the rotator cuff was now debrided down to bleeding bone utilizing a shaver. An anchor was now inserted medially just posterior to the intact portion of the infraspinatus. The anchor was used to secure the 2 inferior leaf of the sutures. SutureTape from the anchor was then passed through the anterior and posterior leaves of the rotator cuff. A [id number]-[id number] suture was placed between the anterior and posterior portions more medially. This then tied the 2 leaves together. The corner of the infraspinatus was also tagged with a luggage tag-type suture. The SutureTape and a luggage tag were now loaded into a lateral anchor, which was punched and then inserted securing the rotator cuff down. A second small tear was noted just to the anterior border of the supraspinatus. Utilizing the lateral 3 sutures, this tear was secured down as well. At this point, the shoulder was passed through a range of motion. The rest of the cuff repair seemed to be stable. Attention was now turned toward the AC joint. Utilizing the RF probe, the soft tissue was debrided off the undersurface of the AC joint. Utilizing a shaver as well as a bur, the AC was widened to 1 cm diameter. The camera was placed directly into the AC joint to identify that adequate tissue had been removed. The cyst, which was noted superficial to the AC joint, was still fluid filled at this point. An 11 blade was used to margie the cyst. Blunt spreading with the clamp was used, and the cystic fluid was drained from this. At this point, the portal was sutured using 3-0 nylon. Sterile dressings were placed. The patient was extubated and transferred to the recovery room in stable condition. Darlene [id number] MTDD
[2018-08-24 14:33] VITALS: TEMP 97.7
[2018-08-24 14:36] VITALS: BP 123/72; PULSE 80
== END 2018-08-24 14:10 | disposition home or self-care (01) ==
LOC: FASU 06:10
PROVIDERS: ATTEND Orthopaedic Surgery Sports Medicine
PROC: 0RBJ4ZZ Excision of Right Shoulder Joint, Percutaneous Endoscopic Approach (ICD-10-PCS; 2018-08-24)
PROC: 0LQ14ZZ Repair Right Shoulder Tendon, Percutaneous Endoscopic Approach (ICD-10-PCS; principal; 2018-08-24 08:33)
PROC: 0RNJ4ZZ Release Right Shoulder Joint, Percutaneous Endoscopic Approach (ICD-10-PCS; 2018-08-24 08:33)
PROC: 0PB94ZZ Excision of Right Clavicle, Percutaneous Endoscopic Approach (ICD-10-PCS; 2018-08-24 08:33)
DX: M75.121 Complete rotator cuff tear or rupture of right shoulder, not specified as traumatic (principal); M19.011 Primary osteoarthritis, right shoulder; M75.41 Impingement syndrome of right shoulder
CPT/HCPCS: 94760

== ENCOUNTER 2018-12-22 06:55 | Day surgery (SDC) | payer OTHER ==
[2018-12-19 17:37] VITALS: BMI 30.2
[2018-12-22] MEDS ORDERED: ceFAZolin SODIUM 1 GM VIAL IVPB ONE (09:34)
[2018-12-22] MEDS ORDERED: BUPIVACAINE HCL/PF 0.5% (5 MG/ML) 30 ML VIAL IJ ONE (09:36)
[2018-12-22] MEDS ORDERED: LIDOCAINE HCL 1%, 10 MG/ML (50 mL VIAL) IJ ONE (09:36)
[2018-12-22] MEDS ORDERED: ONDANSETRON 4 MG/2 ML VIAL IVPUSH PRN (09:49)
[2018-12-22] MEDS ORDERED: oxyCODONE HCL 5 MG TABLET PO PRN ×2 (09:49)
[2018-12-22] MEDS ORDERED: LACTATED RINGERS SOLUTION 1,000 ML IV SCH (10:00)
[2018-12-22] MEDS ORDERED: DEXAMETHASONE SOD PHOSPHATE 4 MG/1 ML VIAL IVPUSH ONE (10:15)
[2018-12-22] MEDS ORDERED: LIDOCAINE HCL 2% (50ML VIAL) NR ONE (10:36)
--- NOTE | 2018-12-22 10:59 | OP ---
Operative Note - Note: Operative Date: 12/22/18 Pre-Operative Diagnosis: Left bunion and 2nd hammertoe Operation: Fabián bunionectomy and 2nd toe arthroplasty left foot Findings: Hypertrophic medial prominence left 1st metatarsal head. Contracted left 2nd toe Implants: 0.62 k-wire Surgeon: Nasrin Lanza Sales And Marketing Director: Natan Garza Anesthesiologist/LOCKS INSPECTOR: Kevyn Rios Anesthesia: MAC Specimens Removed: Bone and skin Estimated Blood Loss (mls): 1 Operative Report Dictated: Yes
[2018-12-22 12:33] VITALS: TEMP 97.9
[2018-12-22 13:18] VITALS: BP 148/71; PULSE 84
--- NOTE | 2018-12-25 15:28 | OP ---
DATE OF OPERATION: DATE OF DICTATION: 12/25/2018 SURGEON: Nasrin Lanza DPM JAVA MANAGER: Natan Garza DPM Attention was drawn to the left foot, where a bunion and 2nd hammertoe were identified. SURGICAL PROCEDURES TO BE PERFORMED: Fabián bunionectomy along with 2nd toe arthroplasty, both digits with K-wire fixation. A 5.0-cm linear longitudinal incision was made medial and parallel to the 1st metatarsophalangeal joint. The incision was deepened through subcutaneous tissue. The 1st metatarsophalangeal joint capsule was identified. All tissues superficial to the joint capsule were freed and carefully dissected, identification of the bunion and the capsule in the center of the wound. A 3.0-cm curvilinear incision was made over the dorsal medial aspect of the 1st metatarsophalangeal joint. All soft tissue and capsular structures were removed from the medial, plantar, and dorsal aspects of the 1st metatarsal head. With the use of a Techoz oscillating saw, a V wedge was cut in a transverse fashion from medial to lateral, effectively freeing the capital fragment of bone. The head of the 1st metatarsal was then transposed laterally and impacted on the 1st metatarsal shaft. Fixation was maintained with a 0.062 Dominick wire. The toe was held in its correct position. Capsular structures were sutured in position with 2-0 Dexon. Subcutaneous tissues were reapproximated with 3-0 Dexon. Skin was then approximated with simple subcutaneous and superficial sutures with 4-0 nylon. Attention was now drawn to the 2nd toe, where 2 semielliptical incisions were made over the neck of the 2nd proximal phalanx. The interposing wedge was removed. The extensor tendon was identified and a transverse tenotomy was performed at the head of the proximal phalangeal joint. Tendon and collateral ligaments were freed from the head of the 2nd proximal phalanx. The head of the 2nd proximal phalanx was delivered into the wound. Using a [place] bone forceps, the head of the 2nd proximal phalanx was removed in toto, rough edges were smoothed. A copious flush was placed. Tendon was reapproximated with 3-0 Dexon and skin was reapproximated with 4-0 nylon. Some dexamethasone phosphate 1 mL was placed in the wound sites postoperative. A Betadine and Adaptic dressing were applied primarily, along with a dry sterile dressing secondarily. The patient tolerated the procedure well and left the OR in good condition. Natan Garza DPM Dictating for CHAD Schmitz DPM [id number] MTDD
--- NOTE | 2018-12-26 17:19 | PATH ---
Surgical Pathology Report Patient Name: GREGORIO DIAZ [facility]. Rec. #: [id number] /Age/Gender: 1960 (Age: 58) / F Account: [id number] Location: [facility] SURGICAL Taken: 12/22/2018 Received: 12/22/2018 Reported: 12/26/2018 Physicians: Nasrin Lanza DPM Specimen(s) Received A: CAPSULE LEFT FOOT B: BONE LEFT 1ST METATARSAL C: BONE AND SKIN Clinical History Hammertoes and bunion left foot Final Diagnosis A. CAPSULE, FOOT, LEFT, EXCISION: DENSE FIBROCONNECTIVE TISSUE WITH DEGENERATIVE AND REACTIVE CHANGES. B. BONE, FIRST METATARSAL, LEFT, EXCISION: BONE WITH DEGENERATIVE CHANGES. C. BONE AND SKIN, EXCISION: BONE WITH DEGENERATIVE CHANGE AND ADHERENT FIBROCONNECTIVE TISSUE. Electronically Signed Ophelia Fierro M.D. Gross Description A. Received in formalin labeled "capsule left foot," is a 2.5 x 0.6 x 0.3 cm peter portion of soft tissue, consistent with a capsule. The specimen is submitted in toto in one cassette. B. Received in formalin labeled "left bone first metatarsal," is a 1.9 x 1.4 x 0.4 cm portion of unremarkable bone. Manufacturing Teacher sections are submitted in one cassette, following decalcification. C. Received in formalin labeled "bone and skin," are 2 peter-yellow, unremarkable portions of bone measuring 1.1 x 0.5 x 0.4 cm and 1.1 x 1.0 x 0.4 cm. There is no skin identified, despite the indication on the requisition. Manufacturing Teacher sections are submitted in one cassette, following decalcification. /12/25/201812/25/2018
== END 2018-12-22 13:00 | disposition home or self-care (01) ==
LOC: JASU-SURG 06:55
PROVIDERS: ATTEND Podiatrist Foot Surgery
PROC: 0QBR0ZZ Excision of Left Toe Phalanx, Open Approach (ICD-10-PCS; principal; 2018-12-22 08:30)
PROC: 0SRQ0JZ Replacement of Left Toe Phalangeal Joint with Synthetic Substitute, Open Approach (ICD-10-PCS; 2018-12-22 08:30)
DX: M21.612 Bunion of left foot (principal)
CPT/HCPCS: 73630-TC-LT; 88304-TC; 88311-TC; 97116-GP

== ENCOUNTER 2019-07-27 20:00 | Emergency (ER) | payer OTHER ==
[2019-07-27 20:08] VITALS: BP 143/72; PULSE 77; TEMP 99.3; BMI 31.4
[2019-07-27] MEDS ORDERED: AZITHROMYCIN 250 MG TABLET PO ONE (20:37)
[2019-07-27] MEDS ORDERED: AZITHROMYCIN 250 MG TABLET ONE (20:45)
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
== END 2019-07-27 20:57 | disposition home or self-care (01) ==
LOC: FER 20:00
DX: J45.40 Moderate persistent asthma, uncomplicated (principal); J30.81 Allergic rhinitis due to animal (cat) (dog) hair and dander; J30.2 Other seasonal allergic rhinitis; I10 Essential (primary) hypertension; E78.5 Hyperlipidemia, unspecified
CPT/HCPCS: 99283-25

== ENCOUNTER 2019-09-02 00:46 | Emergency (ER) | payer OTHER ==
[2019-09-02 00:59] VITALS: TEMP 97.6; BMI 30.2
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
[2019-09-02] MEDS ORDERED: ACETAMINOPHEN 325 MG TABLET (FP) PO ONE (01:41)
[2019-09-02] MEDS ORDERED: ACETAMINOPHEN 325 MG TABLET (FP) ONE (01:43)
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
[2019-09-02] MEDS ORDERED: DIPHTH,PERTUSS(ACELL),TET 0.5 ML DISP.SYRIN IM ONE ×2 (04:30→04:32)
[2019-09-02 04:37] VITALS: BP 130/81; PULSE 76
== END 2019-09-02 04:35 | disposition home or self-care (01) ==
LOC: JER 00:46
PROC: 3E0234Z Introduction of Serum, Toxoid and Vaccine into Muscle, Percutaneous Approach (ICD-10-PCS; principal; 2019-09-02)
DX: G50.1 Atypical facial pain (principal); Y04.2XXA Assault by strike against or bumped into by another person, initial encounter; Y93.89 Activity, other specified; Y92.89 Other specified places as the place of occurrence of the external cause; R73.03 Prediabetes; I10 Essential (primary) hypertension; K92.9 Disease of digestive system, unspecified; E07.9 Disorder of thyroid, unspecified; J30.81 Allergic rhinitis due to animal (cat) (dog) hair and dander
CPT/HCPCS: 70450-TC; 70486-TC; 72125-TC; 90471; 90715; 99284-25

== ENCOUNTER 2020-02-22 15:59 | Emergency (ER) | payer OTHER ==
[2020-02-22 16:05] VITALS: BMI 30.9
[2020-02-22] MEDS ORDERED: SODIUM CHLORIDE 1,000 ML IV STA (16:08)
[2020-02-22] MEDS ORDERED: KETOROLAC TROMETHAMINE 30 MG/1 ML VIAL IVPUSH ONE (16:13)
[2020-02-22] MEDS ORDERED: KETOROLAC TROMETHAMINE 30 MG/1 ML VIAL ONE (16:54)
[2020-02-22 17:24] LABS: BASO % 0.1 % (0-2.0); EOS % 0.5 % (0-4.5); HEMATOCRIT 30.9 % (32.4-45.2); HEMOGLOBIN 9.8 GM/dL (10.7-15.3); LYMPH % 12.3 % (8-40); MCH 24.8 pg (25.7-33.7); MCHC 31.7 g/dl (32.0-36.0); MEAN CELL VOLUME 78.2 fl (80-96); MEAN PLT VOLUME 8.3 fl (7.5-11.1); MONO % 10.4 % (3.8-10.2); NEUT % 76.7 % (42.8-82.8); PLATELET COUNT 322 K/MM3 (134-434); RBC 3.96 M/mm3 (3.60-5.2); RDW 14.5 % (11.6-15.6); WHITE BLOOD COUNT 11.5 K/mm3 (4.0-10.0)
[2020-02-22 17:28] LABS: EPI CELLS 11 /uL (0-25.1); HYALINE CASTS 1 /uL (0-3.1); URINE APPEARANCE CLEAR; URINE BACTERIA 15 /uL (0-1359); URINE BILIRUBIN NEGATIVE (NEGATIVE); URINE COLOR YELLOW; URINE GLUCOSE (UA) NEGATIVE (NEGATIVE); URINE KETONE NEGATIVE (NEGATIVE); URINE LEUK ESTERASE TRACE (NEGATIVE); URINE NITRITE NEGATIVE (NEGATIVE); URINE PROTEIN 1+ (NEGATIVE); URINE RBC 39 /uL (0-23.9); URINE UROBILINOGEN 0.2 mg/dL (0.2-1.0); URINE WBC 42 /uL (0-25.8)
[2020-02-22 17:51] LABS: ALBUMIN 3.5 g/dl (3.4-5.0); BILIRUBIN,TOTAL 0.3 mg/dL (0.2-1); BLOOD UREA NITROGEN 13.3 mg/dL (7-18); CALCIUM 8.3 mg/dL (8.5-10.1); CREATININE 1.1 mg/dL (0.55-1.3); MAGNESIUM 2.5 mg/dL (1.8-2.4); TOT PROT 7.6 g/dl (6.4-8.2)
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
[2020-02-22] MEDS ORDERED: CEFTRIAXONE 1 GM in DEXTROSE 5%-WATER - 50 ML IVPB ONE (20:27)
[2020-02-22 20:30] VITALS: BP 112/49; PULSE 69; TEMP 99.2
[2020-02-22] MEDS ORDERED: CEFTRIAXONE 1 GM/50 ML BAG ONE (20:47)
--- NOTE | 2020-02-22 20:55 | PDOC ---
*Physical Exam - Vital Signs Last Vital Signs Temp Pulse Resp BP Pulse Ox 99.2 F 69 16 112/49 L 100 02/22/20 20:28 02/22/20 20:28 02/22/20 16:01 02/22/20 20:28 02/22/20 20:28 ED Treatment Course - LABORATORY CBC & Chemistry Diagram: 02/22/20 16:40 02/22/20 16:40 - ADDITIONAL ORDERS Additional order review: Laboratory Results 02/22/20 02/22/20 16:40 16:40 Sodium 129 L Potassium 4.0 Chloride 94 L Carbon Dioxide 27 Anion Gap 8 BUN 13.3 Creatinine 1.1 Est GFR (CKD-EPI)AfAm 63.20 Est GFR (CKD-EPI)NonAf 54.53 Random Glucose 91 Calcium 8.3 L Magnesium 2.5 H Total Bilirubin 0.3 AST 26 ALT 27 Alkaline Phosphatase 84 Total Protein 7.6 Albumin 3.5 Lipase 113 Urine Color Yellow Urine Appearance Clear Urine pH 7.0 Ur Specific [place] 1.007 L Urine Protein 1+ H Urine Glucose (UA) Negative Urine Ketones Negative Urine Blood 1+ H Urine Nitrite Negative Urine Bilirubin Negative Urine Urobilinogen 0.2 Ur Leukocyte Esterase Trace Urine WBC (Auto) 42 Urine RBC (Auto) 39 Urine Casts (Auto) 1 U Epithel Cells (Auto) 11 Urine Bacteria (Auto) 15 02/22/20 16:40 RBC 3.96 MCV 78.2 L MCHC 31.7 L RDW 14.5 MPV 8.3 Neutrophils % 76.7 D Lymphocytes % 12.3 D Monocytes % 10.4 H Eosinophils % 0.5 Basophils % 0.1 - Medications Given in the ED: ED Medications Discontinued Medications Generic Name Dose Route Start Last Admin Trade Name Freq PRN Reason Stop Dose Admin Sodium Chloride 1,000 mls @ 1,000 mls/hr 02/22/20 16:08 02/22/20 16:51 Normal Saline - IV 02/22/20 17:07 1,000 mls/hr ASDIR STA Administration Ketorolac Tromethamine 30 mg 02/22/20 16:13 02/22/20 16:51 Toradol Injection - IVPUSH 02/22/20 16:14 30 mg ONCE ONE Administration Medical Decision Making - Medical Decision Making 02/22/20 20:53 59yo F in short with suspected kidney stones, questionable infection in urine per UA, vitals stable patient comfortable s/p Toradol. Will follow up CTAP, dispo. 02/22/20 21:26 CT demonstrating stable renal artery aneurysm No stone, edema suggesting ?recently passed stone Patient denies dysuria, gross blood, supra pubic pain, changes in frequency or smell of urine Results of workup and return precautions discussed with patient Currently asymptomatic, feels well Dispo: Home Discharge - Discharge Information Problems reviewed: Yes Clinical Impression/Diagnosis: Back pain Qualifiers: Back pain location: low back pain Chronicity: chronic Back pain laterality: bilateral Sciatica presence: without sciatica Qualified Code(s): M54.5 - Low back pain; G89.29 - Other chronic pain Condition: Improved Disposition: HOME - Admission No - Follow up/Referral Referrals: Abbe Arriola MD [Primary Care Provider] - - Patient Discharge Instructions Patient Printed Discharge Instructions: DI for Kidney Stones Additional Instructions: You were seen and evaluated for kidney stones. CT did not demonstrate stones but showed evidence that a stone may have been recently passed. You may take Tylenol or Motrin for your pain. Take these as directed on the package label. Follow up with your primary care doctor in 2-3 days for re-evaluation and continued care. Return to the ED for any new or concerning symptoms including but not limited to: development of nausea and vomiting, fevers and chills, worsening pain that doesn't respond to pain medication. - Post Discharge Activity
== END 2020-02-22 22:14 | disposition home or self-care (01) ==
LOC: JER 15:59
PROC: 3E03329 Introduction of Other Anti-infective into Peripheral Vein, Percutaneous Approach (ICD-10-PCS; principal; 2020-02-22)
PROC: 3E033GC Introduction of Other Therapeutic Substance into Peripheral Vein, Percutaneous Approach (ICD-10-PCS; 2020-02-22)
PROC: 3E0337Z Introduction of Electrolytic and Water Balance Substance into Peripheral Vein, Percutaneous Approach (ICD-10-PCS; 2020-02-22)
DX: M54.5 Low back pain (principal); G89.29 Other chronic pain
CPT/HCPCS: 36415; 74176-TC; 80053; 81003; 83690; 83735; 85025; 87077; 87086; 99284-25

== ENCOUNTER 2021-05-29 14:21 | Emergency (ER) | payer OTHER ==
[2021-05-29 16:14] VITALS: BP 112/68; PULSE 65; TEMP 98.2; BMI 30.9
== END 2021-05-29 19:49 | disposition home or self-care (01) ==
LOC: JER 14:21
DX: R53.83 Other fatigue (principal); R50.9 Fever, unspecified; R05.9 Cough, unspecified; Z11.52 Encounter for screening for COVID-19
CPT/HCPCS: 71046-TC-FY; 87804; 99284-25; C9803; U0003; U0005

== ENCOUNTER 2021-06-30 13:29 | Emergency (ER) | payer OTHER ==
[2021-06-30 13:51] VITALS: BP 157/87; PULSE 98; TEMP 98.9; BMI 32.5
== END 2021-06-30 19:00 | disposition home or self-care (01) ==
LOC: JER 13:29
PROC: 0H97XZZ Drainage of Abdomen Skin, External Approach (ICD-10-PCS; principal; 2021-06-30)
DX: L02.219 Cutaneous abscess of trunk, unspecified (principal)
CPT/HCPCS: 99283-25

== ENCOUNTER 2021-07-01 17:28 | Inpatient (IN) | payer OTHER ==
[2021-07-01 18:42] VITALS: BMI 27.4
[2021-07-01] MEDS ORDERED: ACETAMINOPHEN 1000 MG/100 ML BAG IVPB ONE (19:49)
[2021-07-01] MEDS ORDERED: VANCOMYCIN 1 GM in D5W (PRE-DOCKED) 1,000 MG/250 ML IVPB ONE (19:49)
[2021-07-01] MEDS ORDERED: morphine CARPU-JECT 4 MG/1 ML DISP.SYRIN IVPUSH ONE (19:51)
[2021-07-01] MEDS ORDERED: morphine SULFATE 4 MG/ML VIAL ONE (20:40)
[2021-07-01] MEDS ORDERED: ACETAMINOPHEN INJECTION 100 ML IVPB ONE (21:35)
[2021-07-01] MEDS ORDERED: VANCOMYCIN 1 GRAM (PRE-DOCKED) 1,000 MG/250 ML BAG IVPB ONE (21:35)
[2021-07-01 21:40] LABS: BASO % 0.2 % (0-2.0); EOS % 0.4 % (0-4.5); HEMATOCRIT 31.1 % (32.4-45.2); HEMOGLOBIN 10.4 GM/dL (10.7-15.3); LYMPH % 14.2 % (8-40); MCH 25.6 pg (25.7-33.7); MCHC 33.3 g/dl (32.0-36.0); MONO % 7.8 % (3.8-10.2); NEUT % 77.4 % (42.8-82.8); PLATELET COUNT 304 10^3/uL (134-434); RBC 4.04 M/mm3 (3.60-5.2); RDW 15.3 % (11.6-15.6); WHITE BLOOD COUNT 11.8 K/mm3 (4.0-10.0)
[2021-07-01 22:04] LABS: BLOOD UREA NITROGEN 15.9 mg/dL (7-18); CALCIUM 8.4 mg/dL (8.5-10.1)
[2021-07-01 22:05] LABS: MAGNESIUM 2.1 mg/dL (1.8-2.4)
[2021-07-01 22:09] LABS: BILIRUBIN,TOTAL 0.5 mg/dL (0.2-1); TOT PROT 7.1 g/dl (6.4-8.2)
[2021-07-01 22:28] LABS: VENOUS BASE EXCESS 0.3 mmol/L (-2-2); VENOUS O2 SATURATION 42.1 % (70-80); VENOUS PCO2 37.7 mmHg (38-52); VENOUS PH 7.43 (7.310-7.410)
[2021-07-02] MEDS ORDERED: PIPERACILLIN/TAZOB 4.5 GM 4.5 GM in DEXTROSE 5%-WATER 100 ML IVPB ONE (01:16)
[2021-07-02] MEDS ORDERED: PIPERACILLIN/TAZOB 4.5 GM 4.5 GM/100 ML BAG IVPB ONE (01:39)
[2021-07-02] MEDS: SODIUM CHLORIDE 1,000 ML IV SCH (01:53)
[2021-07-02 02:25] LABS: EPI CELLS 30 /uL (0-25.1); HYALINE CASTS 0 /uL (0-3.1); PH,URINE 6.5 (5.0-8.0); URINE APPEARANCE CLEAR; URINE BACTERIA 929 /uL (0-1359); URINE BILIRUBIN NEGATIVE (NEGATIVE); URINE COLOR YELLOW; URINE GLUCOSE (UA) NEGATIVE (NEGATIVE); URINE KETONE 1+ (NEGATIVE); URINE LEUK ESTERASE 2+ (NEGATIVE); URINE NITRITE NEGATIVE (NEGATIVE); URINE PROTEIN TRACE (NEGATIVE); URINE RBC 45 /uL (0-23.9); URINE WBC 59 /uL (0-25.8)
[2021-07-02] MEDS ORDERED: CEFTRIAXONE 1 MG in DEXTROSE 5%-WATER - 50 ML IVPB ONE (03:45)
[2021-07-02] MEDS ORDERED: CEFTRIAXONE 1 GM in DEXTROSE 5%-WATER - 50 ML IVPB ONE (06:15)
[2021-07-02] MEDS ORDERED: CEFTRIAXONE 1 GM/50 ML BAG ONE (06:38)
[2021-07-02] MEDS ORDERED: ACETAMINOPHEN 1000 MG/100 ML BAG IVPB PRN (08:00)
[2021-07-02 08:43] LABS: BASO % 0.2 % (0-2.0); EOS % 1.6 % (0-4.5); HEMATOCRIT 31.2 % (32.4-45.2); LYMPH % 18.7 % (8-40); MCH 25.2 pg (25.7-33.7); MCHC 32.2 g/dl (32.0-36.0); MEAN CELL VOLUME 78.1 fl (80-96); MEAN PLT VOLUME 8.4 fl (7.5-11.1); MONO % 7.1 % (3.8-10.2); NEUT % 72.4 % (42.8-82.8); PLATELET COUNT 335 10^3/uL (134-434); RBC 3.99 M/mm3 (3.60-5.2); RDW 15.4 % (11.6-15.6); WHITE BLOOD COUNT 9.2 K/mm3 (4.0-10.0)
[2021-07-02 09:12] LABS: BLOOD UREA NITROGEN 15.3 mg/dL (7-18)
[2021-07-02 09:13] LABS: MAGNESIUM 2.2 mg/dL (1.8-2.4)
[2021-07-02 09:14] LABS: CALCIUM 8.2 mg/dL (8.5-10.1)
[2021-07-02] MEDS ORDERED: LISINOPRIL 20 MG TABLET PO SCH (10:00)
[2021-07-02] MEDS ORDERED: amLODIPine BESYLATE 5 MG TABLET (FP) PO SCH (10:00)
[2021-07-02] MEDS ORDERED: CHLORTHALIDONE 25 MG TABLET PO SCH (10:00)
[2021-07-02] MEDS ORDERED: PATIENT'S OWN MEDICATION (NON-FORMULARY) (Atenolol/Chlorthalidone [Atenolol-Chlorthalidone PO SCH (10:00)
[2021-07-02] MEDS ORDERED: PATIENT'S OWN MEDICATION (NON-FORMULARY) (Amlodipine Besylate/Benazepril [Amlodipine-Benaz PO SCH (10:00)
[2021-07-02] MEDS ORDERED: cefTRIAXone SODIUM 1 GM VIAL ONE (10:19)
[2021-07-02] MEDS ORDERED: DEXTROSE 5%-WATER - 50 ML IVPB ONE ×3 (10:19→16:25)
[2021-07-02] MEDS: ATENOLOL 50 MG TABLET (FP) PO SCH (10:48)
[2021-07-02] MEDS ORDERED: PT OWN MED DRAWER 7, Y5N ONE ×3 (10:52→21:03)
[2021-07-02] MEDS ORDERED: POTASSIUM CHLORIDE TABS 20 MEQ TABLET.ER (FP) PO ONE (11:30)
[2021-07-02] MEDS ORDERED: PIPERACILLIN/TAZOBACTAM 3.375 GM VIAL IVPB ONE ×2 (11:40→16:25)
[2021-07-02] MEDS ORDERED: PIPERACILLIN/TAZOB 3.375 GM 3.375 GM in DEXTROSE 5%-WATER - 50 ML IVPB ONE (11:45)
[2021-07-02] MEDS: VANCOMYCIN/WATER 1,250 MG/250 ML BAG IVPB SCH ×2 (12:58→22:30)
[2021-07-02] MEDS: ALBUTEROL SO4 HFA INHALER IH PRN (13:15)
[2021-07-02] MEDS: DEXTROSE 5%-NORMAL SALINE 1,000 ML IV SCH (13:15)
[2021-07-02] MEDS ORDERED: PNEUMOC 13-VAL CONJ-DIP CRM/PF 0.5 ML DISP.SYRIN IM ONE (14:03)
[2021-07-02] MEDS ORDERED: FLU VACC QS2021-22(6MOS UP)/PF 60 MCG/0.5 ML SYRINGE IM ONE (17:00)
[2021-07-02] MEDS ORDERED: PNEUMOCOCCAL 23 VACCINE 0.5 ML VIAL IM ONE (17:00)
[2021-07-02] MEDS: PIPERACILLIN/TAZOB 3.375 GM 3.375 GM in DEXTROSE 5%-WATER - 50 ML IVPB SCH (18:03)
[2021-07-02] MEDS: DOXYCYCLINE HYCLATE 100 MG CAPSULE PO SCH (18:04)
[2021-07-02] MEDS: BUDESONIDE/FORMETEROL FUMARATE 80/4.5 mcg INHALER IH SCH (22:00)
[2021-07-02] MEDS: ATORVASTATIN CA 10 MG TABLET (FP) PO SCH (22:29)
[2021-07-02] MEDS: CYCLOBENZAPRINE HCL 10 MG TABLET (FP) PO PRN (22:30)
[2021-07-03] MEDS ORDERED: PIPERACILLIN/TAZOBACTAM 3.375 GM VIAL IVPB ONE ×3 (01:00→17:16)
[2021-07-03] MEDS ORDERED: DEXTROSE 5%-WATER - 50 ML IVPB ONE ×3 (01:01→17:16)
[2021-07-03] MEDS: PIPERACILLIN/TAZOB 3.375 GM 3.375 GM in DEXTROSE 5%-WATER - 50 ML IVPB SCH ×3 (01:42→17:38)
[2021-07-03] MEDS: ALBUTEROL SO4 HFA INHALER IH PRN (09:45)
[2021-07-03 09:50] LABS: HEMATOCRIT 30.2 % (32.4-45.2); HEMOGLOBIN 10.3 GM/dL (10.7-15.3); MCH 26.5 pg (25.7-33.7); MCHC 34.1 g/dl (32.0-36.0); MEAN CELL VOLUME 77.8 fl (80-96); MEAN PLT VOLUME 7.7 fl (7.5-11.1); PLATELET COUNT 331 10^3/uL (134-434); RBC 3.88 M/mm3 (3.60-5.2); WHITE BLOOD COUNT 7.1 K/mm3 (4.0-10.0)
[2021-07-03] MEDS ORDERED: VANCOMYCIN/WATER 1,250 MG/250 ML BAG IVPB SCH (10:00)
[2021-07-03 10:16] LABS: ALBUMIN 2.7 g/dl (3.4-5.0); BLOOD UREA NITROGEN 8.1 mg/dL (7-18); CALCIUM 8.7 mg/dL (8.5-10.1); MAGNESIUM 2.2 mg/dL (1.8-2.4)
[2021-07-03 10:19] LABS: CREATININE 0.9 mg/dL (0.55-1.3); PHOSPHOROUS 2.8 mg/dL (2.5-4.9)
[2021-07-03 10:20] LABS: BILIRUBIN,TOTAL 0.5 mg/dL (0.2-1); TOT PROT 6.8 g/dl (6.4-8.2)
[2021-07-03] MEDS: DOXYCYCLINE HYCLATE 100 MG CAPSULE PO SCH ×2 (10:39→17:38)
[2021-07-03] MEDS: ENOXAPARIN NA (PORCINE) 40 MG/0.4 ML DISP.SYRIN SQ SCH (10:39)
[2021-07-03] MEDS: ATENOLOL 50 MG TABLET (FP) PO SCH (10:39)
[2021-07-03] MEDS: SODIUM CHLORIDE 1,000 ML IV SCH (10:41)
[2021-07-03] MEDS: DEXTROSE 5%-NORMAL SALINE 1,000 ML IV SCH (10:44)
[2021-07-03] MEDS: BUDESONIDE/FORMETEROL FUMARATE 80/4.5 mcg INHALER IH SCH ×2 (10:45→21:58)
[2021-07-03] MEDS: VANCOMYCIN 1 GM in D5W (PRE-DOCKED) 1,000 MG/250 ML IVPB SCH (18:57)
[2021-07-03] MEDS: ATORVASTATIN CA 10 MG TABLET (FP) PO SCH (21:58)
[2021-07-03] MEDS ORDERED: VANCOMYCIN 1 GM in D5W (PRE-DOCKED) 1,000 MG/250 ML IVPB SCH (22:00)
[2021-07-04] MEDS ORDERED: DEXTROSE 5%-WATER - 50 ML IVPB ONE ×2 (02:43→09:50)
[2021-07-04] MEDS ORDERED: PIPERACILLIN/TAZOBACTAM 3.375 GM VIAL IVPB ONE ×2 (02:43→09:50)
[2021-07-04] MEDS: PIPERACILLIN/TAZOB 3.375 GM 3.375 GM in DEXTROSE 5%-WATER - 50 ML IVPB SCH ×2 (02:44→09:55)
[2021-07-04] MEDS ORDERED: ACETAMINOPHEN 500 MG TABLET (FP) PO ONE (03:12)
[2021-07-04] MEDS: VANCOMYCIN 1 GM in D5W (PRE-DOCKED) 1,000 MG/250 ML IVPB SCH (06:06)
[2021-07-04 09:36] LABS: HEMATOCRIT 30.6 % (32.4-45.2); MCH 25.4 pg (25.7-33.7); MCHC 32.6 g/dl (32.0-36.0); MEAN CELL VOLUME 77.9 fl (80-96); PLATELET COUNT 436 10^3/uL (134-434); RBC 3.93 M/mm3 (3.60-5.2); WHITE BLOOD COUNT 5.1 K/mm3 (4.0-10.0)
[2021-07-04] MEDS: ENOXAPARIN NA (PORCINE) 40 MG/0.4 ML DISP.SYRIN SQ SCH (09:55)
[2021-07-04] MEDS: CYCLOBENZAPRINE HCL 10 MG TABLET (FP) PO PRN (09:55)
[2021-07-04] MEDS: ATENOLOL 50 MG TABLET (FP) PO SCH (09:55)
[2021-07-04] MEDS: FERROUS SO4 325 MG TABLET (FP) PO SCH (09:55)
[2021-07-04 10:10] LABS: CALCIUM 8.7 mg/dL (8.5-10.1)
[2021-07-04 10:11] LABS: BLOOD UREA NITROGEN 6.5 mg/dL (7-18)
[2021-07-04 10:13] LABS: CREATININE 0.8 mg/dL (0.55-1.3)
[2021-07-04 10:15] LABS: BILIRUBIN,TOTAL 0.3 mg/dL (0.2-1); TOT PROT 7.1 g/dl (6.4-8.2)
[2021-07-04 10:16] LABS: MAGNESIUM 2.1 mg/dL (1.8-2.4)
[2021-07-04] MEDS ORDERED: CALCIUM 250MG/VIT-D 125 UNITS 1 COMBO TABLET PO SCH (10:30)
[2021-07-04] MEDS ORDERED: ZINC SULFATE 220 MG CAPSULE (FP) PO SCH (10:30)
[2021-07-04] MEDS ORDERED: MULTIVITAMINS (DAILY MVI) TABLET (FP) PO SCH (10:30)
[2021-07-04] MEDS: BUDESONIDE/FORMETEROL FUMARATE 80/4.5 mcg INHALER IH SCH ×2 (11:30→21:47)
[2021-07-04] MEDS: ASCORBIC ACID 250 MG TABLET (FP) PO SCH (11:30)
[2021-07-04 13:26] LABS: HIV INTERPRETATION NEGATIVE (NEGATIVE)
[2021-07-04] MEDS: ACETAMINOPHEN 325 MG TABLET (FP) PO PRN ×2 (13:59→21:55)
[2021-07-04] MEDS: oxyCODONE HCL 5 MG TABLET PO PRN ×2 (13:59→21:55)
[2021-07-04] MEDS: ATORVASTATIN CA 10 MG TABLET (FP) PO SCH (21:47)
[2021-07-05] MEDS: VANCOMYCIN/WATER BAGS 1,250 MG/250 ML BAG IVPB SCH (09:29)
[2021-07-05] MEDS: ACETAMINOPHEN 325 MG TABLET (FP) PO PRN ×3 (09:30→22:34)
[2021-07-05] MEDS: ATENOLOL 50 MG TABLET (FP) PO SCH (09:30)
[2021-07-05] MEDS: FERROUS SO4 325 MG TABLET (FP) PO SCH (09:30)
[2021-07-05] MEDS: oxyCODONE HCL 5 MG TABLET PO PRN ×3 (09:30→22:35)
[2021-07-05] MEDS: ASCORBIC ACID 250 MG TABLET (FP) PO SCH (09:30)
[2021-07-05 09:31] LABS: HEMATOCRIT 31.3 % (32.4-45.2); HEMOGLOBIN 10.3 GM/dL (10.7-15.3); MCH 25.7 pg (25.7-33.7); MCHC 32.8 g/dl (32.0-36.0); MEAN CELL VOLUME 78.5 fl (80-96); MEAN PLT VOLUME 7.6 fl (7.5-11.1); PLATELET COUNT 497 10^3/uL (134-434); RBC 3.99 M/mm3 (3.60-5.2); RDW 15.2 % (11.6-15.6); WHITE BLOOD COUNT 4.8 K/mm3 (4.0-10.0)
[2021-07-05] MEDS: CYCLOBENZAPRINE HCL 10 MG TABLET (FP) PO PRN (09:31)
[2021-07-05] MEDS: ENOXAPARIN NA (PORCINE) 40 MG/0.4 ML DISP.SYRIN SQ SCH (09:31)
[2021-07-05 10:02] LABS: CALCIUM 9.1 mg/dL (8.5-10.1)
[2021-07-05 10:03] LABS: ALBUMIN 3.1 g/dl (3.4-5.0); BLOOD UREA NITROGEN 9.2 mg/dL (7-18)
[2021-07-05 10:05] LABS: CREATININE 1.3 mg/dL (0.55-1.3)
[2021-07-05 10:07] LABS: TOT PROT 7.3 g/dl (6.4-8.2)
[2021-07-05 10:08] LABS: BILIRUBIN,TOTAL 0.3 mg/dL (0.2-1)
[2021-07-05] MEDS: BUDESONIDE/FORMETEROL FUMARATE 80/4.5 mcg INHALER IH SCH ×2 (10:49→21:37)
[2021-07-05] MEDS: ATORVASTATIN CA 10 MG TABLET (FP) PO SCH (21:37)
[2021-07-06] MEDS: VANCOMYCIN/WATER BAGS 1,250 MG/250 ML BAG IVPB SCH (06:52)
[2021-07-06 09:19] LABS: HEMATOCRIT 31.1 % (32.4-45.2); HEMOGLOBIN 10.2 GM/dL (10.7-15.3); MCH 25.7 pg (25.7-33.7); MCHC 32.7 g/dl (32.0-36.0); MEAN CELL VOLUME 78.6 fl (80-96); MEAN PLT VOLUME 7.6 fl (7.5-11.1); PLATELET COUNT 489 10^3/uL (134-434); RBC 3.96 M/mm3 (3.60-5.2); RDW 15.1 % (11.6-15.6); WHITE BLOOD COUNT 4.9 K/mm3 (4.0-10.0)
[2021-07-06] MEDS: oxyCODONE HCL 5 MG TABLET PO PRN (09:20)
[2021-07-06] MEDS: ATENOLOL 50 MG TABLET (FP) PO SCH (09:20)
[2021-07-06] MEDS: ENOXAPARIN NA (PORCINE) 40 MG/0.4 ML DISP.SYRIN SQ SCH (09:20)
[2021-07-06] MEDS: FERROUS SO4 325 MG TABLET (FP) PO SCH (09:20)
[2021-07-06] MEDS: ACETAMINOPHEN 325 MG TABLET (FP) PO PRN (09:23)
[2021-07-06] MEDS: BUDESONIDE/FORMETEROL FUMARATE 80/4.5 mcg INHALER IH SCH (09:25)
[2021-07-06] MEDS ORDERED: PT OWN MED DRAWER 7, Y5N ONE (09:26)
[2021-07-06] MEDS: ASCORBIC ACID 250 MG TABLET (FP) PO SCH (09:29)
[2021-07-06 10:01] LABS: BILIRUBIN,TOTAL 0.3 mg/dL (0.2-1); BLOOD UREA NITROGEN 10.9 mg/dL (7-18); CREATININE 1.2 mg/dL (0.55-1.3); MAGNESIUM 2.1 mg/dL (1.8-2.4); PHOSPHOROUS 3.7 mg/dL (2.5-4.9); TOT PROT 6.8 g/dl (6.4-8.2)
[2021-07-06 17:03] VITALS: BP 138/70; PULSE 79; TEMP 98
== END 2021-07-06 15:03 | disposition left against medical advice (07) | DRG 383 ==
LOC: JER 17:28 → JERBED 19:48 → J6S 07-02 08:52
PROVIDERS: ADMIT Internal Medicine; ATTEND Internal Medicine
PROC: 0W9L0ZZ Drainage of Lower Back, Open Approach (ICD-10-PCS; principal; 2021-07-02)
DX: L02.219 Cutaneous abscess of trunk, unspecified (principal); I10 Essential (primary) hypertension; E78.5 Hyperlipidemia, unspecified; R73.03 Prediabetes; J45.909 Unspecified asthma, uncomplicated; L03.319 Cellulitis of trunk, unspecified; G89.29 Other chronic pain; D50.9 Iron deficiency anemia, unspecified; E87.1 Hypo-osmolality and hyponatremia; N39.0 Urinary tract infection, site not specified; D64.9 Anemia, unspecified; E16.2 Hypoglycemia, unspecified
CPT/HCPCS: 36415; 74176-TC; 80048; 80053; 81003; 82728; 82803; 83036; 83540; 83550; 83735; 84100; 85025; 85027; 85045; 87040; 87070; 87186; 87205; 87389; 90686; 90732; 93005; 93010; 99285-25; C9803; G0008; G0009; G0480; J0131; U0003; U0005

== ENCOUNTER 2021-12-24 01:22 | Emergency (ER) | payer OTHER ==
[2021-12-24 01:31] VITALS: BMI 30.5
[2021-12-24] MEDS ORDERED: ACETAMINOPHEN 500 MG TABLET (FP) PO ONE (02:52)
[2021-12-24] MEDS ORDERED: ACETAMINOPHEN 325 MG TABLET (FP) ONE (03:00)
[2021-12-24] MEDS ORDERED: DIPHTH,PERTUSS(ACELL),TET 0.5 ML DISP.SYRIN IM ONE ×2 (06:22→06:44)
[2021-12-24 07:13] VITALS: BP 145/90; PULSE 52; TEMP 97.7
== END 2021-12-24 09:04 | disposition home or self-care (01) ==
LOC: JER 01:22
PROC: 3E0233Z Introduction of Anti-inflammatory into Muscle, Percutaneous Approach (ICD-10-PCS; principal; 2021-12-24)
DX: S50.311A Abrasion of right elbow, initial encounter (principal); M25.562 Pain in left knee; M25.561 Pain in right knee; M54.50 Low back pain, unspecified; W01.0XXA Fall on same level from slipping, tripping and stumbling without subsequent striking against object, initial encounter
CPT/HCPCS: 70450-TC; 71046-TC-FY; 72100-TC-FY; 72125-TC; 72170-TC-FY; 73070-TC-RT-FY; 73090-TC-RT-FY; 73502-TC-LT-FY; 73562-TC-LT-FY; 73562-TC-RT-FY; 90471; 90715; 96372; 99285-25

== ENCOUNTER 2022-03-11 17:57 | Emergency (ER) | payer OTHER ==
[2022-03-11 18:18] VITALS: BP 120/67; PULSE 65; RESP 16; TEMP 98.3; BMI 27.1
[2022-03-11] MEDS ORDERED: predniSONE 20 MG TABLET (UD) PO ONE (19:12)
[2022-03-11] MEDS ORDERED: ALBUTEROL SO4 2.5/IPRATROPIUM 0.5 INH SOL 3 ML VIAL.NEB. NEB ONE ×3 (19:12→19:32)
[2022-03-11] MEDS ORDERED: predniSONE 10 MG TABLET (UD) ONE (19:32)
[2022-03-11] MEDS ORDERED: predniSONE 20 MG TABLET (UD) ONE (19:33)
[2022-03-12] MEDS ORDERED: predniSONE 20 MG TABLET (UD) PO ONE (19:12)
== END 2022-03-11 20:30 | disposition home or self-care (01) ==
LOC: JERFT 17:57
PROC: 3E0F7GC Introduction of Other Therapeutic Substance into Respiratory Tract, Via Natural or Artificial Opening (ICD-10-PCS; principal; 2022-03-11)
DX: J45.901 Unspecified asthma with (acute) exacerbation (principal)
CPT/HCPCS: 71046-TC-FY; 99284-25

== ENCOUNTER 2022-09-12 20:18 | Emergency (ER) | payer OTHER ==
[2022-09-12 20:34] VITALS: BP 140/59; PULSE 63; RESP 18; TEMP 98.4
[2022-09-12 21:40] LABS: BASO % 0.6 % (0-2.0); EOS % 5.1 % (0-4.5); HEMATOCRIT 32.6 % (32.4-45.2); LYMPH % 48.1 % (8-40); MCH 26.5 pg (25.7-33.7); MCHC 33.8 g/dl (32.0-36.0); MEAN CELL VOLUME 78.3 fl (80-96); MEAN PLT VOLUME 7.6 fl (7.5-11.1); MONO % 10.9 % (3.8-10.2); NEUT % 35.3 % (42.8-82.8); PLATELET COUNT 347 10^3/uL (134-434); RBC 4.17 M/mm3 (3.60-5.2); RDW 13.9 % (11.6-15.6); WHITE BLOOD COUNT 6.2 K/mm3 (4.0-10.0)
[2022-09-12 21:58] LABS: CALCIUM 8.8 mg/dL (8.5-10.1)
[2022-09-12 21:59] LABS: ALBUMIN 3.8 g/dl (3.4-5.0); BLOOD UREA NITROGEN 19.2 mg/dL (7-18)
[2022-09-12 22:02] LABS: CREATININE 0.9 mg/dL (0.55-1.3)
[2022-09-12 22:04] LABS: BILIRUBIN,TOTAL 0.2 mg/dL (0.2-1); TOT PROT 7.5 g/dl (6.4-8.2)
== END 2022-09-12 22:54 | disposition home or self-care (01) ==
LOC: JER 20:18
DX: E87.1 Hypo-osmolality and hyponatremia (principal)
CPT/HCPCS: 36415; 80053; 84443; 84484; 85025; 99283-25

== ENCOUNTER 2022-10-14 23:33 | Emergency (ER) | payer OTHER ==
[2022-10-14 23:43] VITALS: BP 128/79; PULSE 80; RESP 20; TEMP 98.4; BMI 30.2
[2022-10-15] MEDS ORDERED: KETOROLAC TROMETHAMINE 15 MG/ML VIAL IVPUSH ONE (00:26)
[2022-10-15] MEDS ORDERED: METHOCARBAMOL 500 MG TABLET PO ONE (00:26)
[2022-10-15] MEDS ORDERED: LIDOCAINE 5% TOPICAL PATCH TP ONE (00:26)
[2022-10-15] MEDS ORDERED: LIDOCAINE 5% TOPICAL PATCH ONE (01:12)
[2022-10-15] MEDS ORDERED: METHOCARBAMOL 500 MG TABLET ONE (01:12)
[2022-10-15] MEDS ORDERED: KETOROLAC TROMETHAMINE 15 MG/ML VIAL ONE (01:13)
[2022-10-15 01:33] LABS: INR 0.93 (0.83-1.09); PROTHROMBIN TIME (PATIENT) 10.8 SEC (9.7-13.0)
[2022-10-15 01:36] LABS: ACTIVATED PTT 26.7 SECONDS (25.2-36.5)
[2022-10-15 01:39] LABS: BASO % 0.2 % (0-2.0); BLOOD UREA NITROGEN 22.8 mg/dL (7-18); CALCIUM 9.2 mg/dL (8.5-10.1); HEMATOCRIT 30.8 % (32.4-45.2); HEMOGLOBIN 10.4 GM/dL (10.7-15.3); LYMPH % 10.2 % (8-40); MAGNESIUM 2.4 mg/dL (1.8-2.4); MCH 26.4 pg (25.7-33.7); MCHC 33.7 g/dl (32.0-36.0); MEAN CELL VOLUME 78.3 fl (80-96); MEAN PLT VOLUME 8.1 fl (7.5-11.1); NEUT % 86.6 % (42.8-82.8); PLATELET COUNT 353 10^3/uL (134-434); RBC 3.93 M/mm3 (3.60-5.2); WHITE BLOOD COUNT 9.5 K/mm3 (4.0-10.0)
[2022-10-15 01:44] LABS: BILIRUBIN,TOTAL 0.4 mg/dL (0.2-1); TOT PROT 8.1 g/dl (6.4-8.2)
[2022-10-15] MEDS ORDERED: SODIUM CHLORIDE 0.9% 500 ML INFUS.BAG IV ONE (02:03)
[2022-10-15 03:45] LABS: ERYTHROCYTE SEDIMENTATION RATE 38 mm/hr (0-30)
[2022-10-15] MEDS ORDERED: LIDOCAINE PATCH REMOVAL MC ONE (13:00)
== END 2022-10-15 04:04 | disposition home or self-care (01) ==
LOC: JER 23:33
PROC: 3E033GC Introduction of Other Therapeutic Substance into Peripheral Vein, Percutaneous Approach (ICD-10-PCS; principal; 2022-10-14)
DX: R07.81 Pleurodynia (principal); M54.6 Pain in thoracic spine; R06.9 Unspecified abnormalities of breathing
CPT/HCPCS: 36415; 71045-TC-FY; 80053; 83690; 83735; 84484; 85025; 85610; 85651; 85730; 86140; 86850; 86900; 86901; 93005; 93010; 99285-25

== ENCOUNTER 2023-05-10 15:06 | Emergency (ER) | payer OTHER ==
[2023-05-10 15:17] VITALS: BP 143/84; PULSE 66; RESP 18; TEMP 98.2; BMI 30.2
[2023-05-10] MEDS ORDERED: ALBUTEROL SO4 2.5/IPRATROPIUM 0.5 INH SOL 3 ML VIAL.NEB. NEB ONE ×3 (16:05→16:17)
[2023-05-10] MEDS ORDERED: methylPREDNISolone NA SUCC 125 MG/2 ML VIAL IM ONE (16:06)
[2023-05-10] MEDS ORDERED: methylPREDNISolone NA SUCC 125 MG/2 ML VIAL ONE (16:16)
[2023-05-10] MEDS ORDERED: DEXAMETHASONE SOD PHOSPHATE 10 MG/1 ML VIAL PO ONE (16:31)
[2023-05-10] MEDS ORDERED: DEXAMETHASONE SOD PHOSPHATE 10 MG/1 ML VIAL ONE (16:33)
== END 2023-05-10 18:27 | disposition home or self-care (01) ==
LOC: JERFT 15:06
PROC: 3E0F7GC Introduction of Other Therapeutic Substance into Respiratory Tract, Via Natural or Artificial Opening (ICD-10-PCS; principal; 2023-05-10)
DX: R05.1 Acute cough (principal); R06.02 Shortness of breath; J45.901 Unspecified asthma with (acute) exacerbation; R91.1 Solitary pulmonary nodule; Z20.822 Contact with and (suspected) exposure to COVID-19
CPT/HCPCS: 0241U-QW; 71046-TC-FY; 99284-25; J1100

== ENCOUNTER 2023-08-16 18:57 | Emergency (ER) | payer OTHER ==
[2023-08-16 19:08] VITALS: BP 153/54; PULSE 62; RESP 18; TEMP 97.7; BMI 31.9
[2023-08-16 20:46] LABS: BASO % 0.9 % (0-2.0); EOS % 4.6 % (0-4.5); HEMATOCRIT 31.7 % (32.4-45.2); HEMOGLOBIN 10.5 GM/dL (10.7-15.3); LYMPH % 48.3 % (8-40); MCH 26.8 pg (25.7-33.7); MEAN CELL VOLUME 81.1 fl (80-96); MEAN PLT VOLUME 8.2 fl (7.5-11.1); MONO % 9.9 % (3.8-10.2); NEUT % 36.3 % (42.8-82.8); PLATELET COUNT 326 10^3/uL (134-434); RDW 14.9 % (11.6-15.6); WHITE BLOOD COUNT 7.2 K/mm3 (4.0-10.0)
[2023-08-16 20:52] LABS: INR 0.93 (0.83-1.09); PROTHROMBIN TIME (PATIENT) 10.8 SEC (9.7-13.0)
[2023-08-16 20:55] LABS: ACTIVATED PTT 29.1 SECONDS (25.2-36.5)
[2023-08-16 21:05] LABS: POTASSIUM 3.8 mmol/L (3.5-5.1)
[2023-08-16 21:07] LABS: BLOOD UREA NITROGEN 10.3 mg/dL (7-18); CALCIUM 8.7 mg/dL (8.5-10.1)
[2023-08-16 21:08] LABS: ALBUMIN 3.6 g/dl (3.4-5.0)
[2023-08-16 21:11] LABS: CREATININE 0.7 mg/dL (0.55-1.3)
[2023-08-16 21:12] LABS: BILIRUBIN,TOTAL 0.2 mg/dL (0.2-1)
== END 2023-08-16 22:40 | disposition home or self-care (01) ==
LOC: JER 18:57
DX: E61.1 Iron deficiency (principal); E87.1 Hypo-osmolality and hyponatremia; E87.6 Hypokalemia; R05.9 Cough, unspecified; R07.89 Other chest pain; R06.02 Shortness of breath; M79.642 Pain in left hand; R79.9 Abnormal finding of blood chemistry, unspecified; Z20.822 Contact with and (suspected) exposure to COVID-19
CPT/HCPCS: 0241U-QW; 36415; 71046-TC-FY; 80053; 82728; 83540; 83550; 83735; 83935; 84300; 84484; 85025; 85610; 85730; 86850; 86900; 86901; 93005; 93010; 99284-25